=== PATIENT | female | born 1985 | race Caucasian/White ===

== ENCOUNTER → 2024-08-26 09:34 | Outpatient (BNVA) | payer OTHER, SELFPAY | PROVIDERS: Visit Provider Clinical Nurse Specialist Adult Health | DX: R07.9 Chest pain, unspecified (principal); F41.1 Generalized anxiety disorder; K02.9 Dental caries, unspecified; R00.2 Palpitations; D50.9 Iron deficiency anemia, unspecified | CPT/HCPCS: 82607; 82728; 83550 ==

== ENCOUNTER 2024-09-10 14:03 | Outpatient (CLI) | payer OTHER, SELFPAY ==
--- NOTE | 2024-09-10 14:00 | MM_ITS ---
WS: [id number] VIEWS: MLO and CC views both breasts. 3D digital tomosynthesis is also included in this exam. Baseline study. No priors. Findings: The breasts are extremely dense, which lowers the sensitivity of mammography. No suspicious mass, tumor calcification or architectural distortion. MM/MM scr BI tomosynthesis [id number] Impression: BI-RADS: 2 - Benign FOLLOW-UP: 1 Year Follow-up This mammogram was also analyzed by the Computer Aided Detection System R2 Imag e Capsule Inspector.
== END 2024-09-10 14:04 | disposition home or self-care (01) ==
LOC: MOBLMAM 14:05
PROVIDERS: PCP Clinical Nurse Specialist Adult Health; Visit Provider Clinical Nurse Specialist Adult Health
DX: Z12.31 Encounter for screening mammogram for malignant neoplasm of breast (principal); R92.333 Mammographic heterogeneous density, bilateral breasts
CPT/HCPCS: 77063; 77067

== ENCOUNTER 2024-12-31 23:42 | Inpatient (IN) | payer MEDICAID, SELFPAY ==
[2024-12-31 23:44] VITALS: BP 123/83; RESP 18; TEMP 36.8; O2SAT 75
--- NOTE | 2024-12-31 23:47 | CTR_ITS ---
PROCEDURE INFORMATION: Exam: CT Head Without Contrast Exam date and time: 01/01/2025 1:23 AM Age: 39 years old Clinical indication: Alteration of consciousness and other: Seizure; Syncope and collapse; Additional info: New onset seizure TECHNIQUE: Imaging protocol: Computed tomography of the head without contrast. Radiation optimization: All CT scans at this facility use at least one of these dose optimization techniques: automated exposure control; mA and/or kV adjustment per patient size (includes targeted exams where dose is matched to clinical indication); or iterative reconstruction. COMPARISON: No relevant prior studies available. RADIATION DOSE METRICS: Total DLP (mGy-cm): 1229.08 FINDINGS: Brain: Normal. No infarct or hemorrhage. Unremarkable white matter. No mass effect. Cerebral ventricles: No ventriculomegaly. Paranasal sinuses: Paranasal sinuses are clear. No air-fluid level. Mastoid air cells: Visualized mastoid air cells are clear. Bones: Unremarkable. No acute fracture. Soft tissues: Unremarkable. CT/CT head wo con* [id number] IMPRESSION: No acute intracranial abnormality.
--- NOTE | 2024-12-31 23:48 | XRR_ITS ---
PROCEDURE INFORMATION: Exam: CT Head With Contrast Exam date and time: 01/01/2025 1:35 AM Age: 39 years old Clinical indication: Other: Seizure; Other: Intubation; Additional info: Probable tumor TECHNIQUE: Imaging protocol: Computed tomography of the head with intravenous contrast. Radiation optimization: All CT scans at this facility use at least one of these dose optimization techniques: automated exposure control; mA and/or kV adjustment per patient size (includes targeted exams where dose is matched to clinical indication); or iterative reconstruction. Contrast material: OMNI 350; Contrast volume: 75 ml; Contrast route: INTRAVENOUS (IV); COMPARISON: CT head wo con* [id number] 01/01/2025 1:23 AM RADIATION DOSE METRICS: Total DLP (mGy-cm): 2475.98 FINDINGS: Brain: No cerebral/cerebellar infarct. No brain parenchymal or extra-axial hemorrhage. No abnormal parenchymal or meningeal enhancement. Cerebral ventricles: Unremarkable. No ventriculomegaly. Bones/joints: Unremarkable. No acute fracture. Paranasal sinuses: Visualized sinuses are unremarkable. No fluid levels. Mastoid air cells: Visualized mastoid air cells are well aerated. Soft tissues: Unremarkable. Other findings: No mass lesion. PROCEDURE INFORMATION: Exam: XR Chest Exam date and time: 01/01/2025 1:35 AM Age: 39 years old Clinical indication: Other: Seizure; Other: Intubation; Additional info: Probable tumor TECHNIQUE: Imaging protocol: Radiologic exam of the chest. Views: 1 view. COMPARISON: No relevant prior studies available. FINDINGS: Tubes, catheters and devices: Endotracheal tube is in good position. Nasogastric/orogastric tube is in good position. Lungs: Unremarkable. No consolidation. Pleural spaces: Unremarkable. No pleural effusion. No pneumothorax. Heart/Mediastinum: Unremarkable. No cardiomegaly. Bones/joints: Unremarkable. XR/XR chest 1V portable [id number] IMPRESSION: 1. No acute infarct or hemorrhage. 2. No mass lesion. IMPRESSION: 1. Nasogastric/orogastric tube is in good position. 2. Endotracheal tube is in good position. 3. No acute disease.
[2024-12-31 23:51] VITALS: BP 135/78; PULSE 125; RESP 18; O2SAT 99
--- NOTE | 2024-12-31 23:52 | ED_ITS ---
HPI - Seizure 2 General: Chief Complaint: Seizure Stated Complaint: SEIZURES Time Seen by Provider: 12/31/24 23:45 Related Data Home Medications ?Medication ?Instructions ?Recorded ?Confirmed Dessicated Beef organs PO 08/26/24 11/01/24 Previous Rx's ?Medication ?Instructions ?Recorded ferrous sulfate 324 mg (65 mg 324 mg PO DAILY #30 tabs 08/28/24 iron) tablet,delayed release amoxicillin 875 mg tablet 875 mg PO Q12H #14 tabs 10/04 10/26 chlorhexidine gluconate 0.12 % 15 ml buccal DAILY #120 mL 11/01/24 mouthwash (Peridex) prednisone 20 mg tablet See Rx Instructions .Route 0 11/01/24 .COMPLEX #14 tabs venlafaxine 75 mg capsule,extended 75 mg PO QAM #30 ca ps 12/02/24 release 24 hr Allergies Allergy/AdvReac Type Severity Reaction Status Date / Time gabapentin Allergy Intermediate ADR-Dizzine Verified 12/31/24 23:51 ss rizatriptan (From Maxalt) Allergy Mild Unknown Verified 11/01/24 08:02 PFSH ED 2 PFSH: Medical History Iron deficiency anemia Palpitation Lumbar disc disease Herpes simplex type 2 Mild intermittent asthma in childhood IBS (irritable bowel syndrome) diagnosed by GI. hx of colonoscopy. Raynauds disease Calcium kidney stones Adenomyosis Endometriosis Ovarian cyst ADHD Major depression Generalized anxiety disorder Surgical History Hx of wisdom tooth extraction Hx of cholecystectomy History of salivary gland disease had a stone and then had gland removal History of removal of ovarian cyst X3 Family History Other Anesthesia complication Autoimmune disease CAD (coronary artery disease) Cancer Diabetes mellitus type 1 Heart disease Hypertension Prostate cancer Skin cancer Stroke Ulcerative colitis Social History Smoking and tobacco/nicotine status: current every day tobacco/nicotine user (vapes) Alcohol intake: current Alcohol intake frequency: holidays/special occasions only Substance/Drug Use: current Other substance/drug use details: pen-helps with anxiety, once/week Physical Exam 2 Narrative: EXAM NARRATIVE: General: responds minimally to painful stimuli. Skin: Warm, dry Head: Normocephalic, atraumatic. Neck: Supple, trachea midline. Eye: Extraocular movements are intact. Ears, nose, mouth and throat: Dry oral mucosa. Cardiovascular: Regular rate and rhythm, Normal peripheral perfusion. Respiratory: Lungs are clear to auscultation, respirations are non-labored, breath sounds are equal, Symmetrical chest wall expansion. Gastrointestinal: Soft, Non distended, Normal bowel sounds. Musculoskeletal: no deformity. Neurological: Not Alert and oriented, No obvious focal neurological deficit observed. Psychiatric: unable to assess. Course 2 Vital Signs: Vital signs: Vital Signs Temperature 98.3 F 12/31/24 23:44 Pulse Rate 125 H 12/31/24 23:51 Respiratory Rate 18 12/31/24 23:51 Blood Pressure 135/78 12/31/24 23:51 Pulse Oximetry 99 12/31/24 23:51 Oxygen Delivery Me thod Room Air 12/31/24 23:44 MDM - Seizure MDM Narrative Medical decision making narrative: Medical decision making: Differential diagnosis for this patient with a complaint of seizure like activity would include but not be limited to, and based on the above HPI, review of systems and physical exam: seizure, DT's, alcohol withdrawal, brain malignancy, pseudo-seizure, syncope. Orders placed to evaluate differential diagnosis based on the above differential, HPI and physical exam AB.8 /269. Respiratory and likely metabolic acidosis from lactic acid. Under ventilating. Lab Review: Laboratory results were reviewed and interpreted by myself the emergency room physician Consultation: I spoke with Dr. Durán who is on-call for neurology. He recommends 1 g of Keppra now then 500 twice daily IV after. He agrees with plan. He also agrees that if she does not wake up fairly soon that she will need to be intubated but he also agrees that the Versed and postictal state may wear off fairly quickly and she is maintaining her oxygen. I reviewed the patient's medical record. Reexamination: Patient continued to be unresponsive and had limited respirations. For this reason she was intubated so she could make it CT and because she was not maintaining her airway. Endotracheal intubation Time: 12:45 AM Confirmed: Patient, procedure, and site correct. Consent: , Emergent. Indication: Respiratory failure. Procedural sedation: Succinylcholine and etomidate . Monitoring: Cardiac, blood pressure, continuous pulse oximetry. Preparation: Pre oxygenated, Inline stabilization of cervical spine maintained, Ensured proper cuff inflation. Technique: Oral intubation: A 8 ET tube was inserted, glydescope, visualized cords and ett passing through cords. . Confirmation of tube placement: Bilateral chest rise, Positive color change indicated on end title CO2. Post procedure exam: Equal breath sounds. Complications: None. Performed by: Self. Total time: 10 minutes. Assessment and plan: -I discussed the patient with the hospitalist on-call who is admitting the patient. - Discussed findings and plan with patient. Answered any questions. - All laboratory values were reviewed and interpreted personally by myself, the ER physician - All imaging was reviewed and interpreted personally by myself, the ER physician. - Evaluation and treatment of this problem were appropriate in the emergency setting Lab Data 01/01/25 00:42 01/01/25 00:42 Labs: Laboratory Results WBC 15.63 10^3/uL (3.29-11.43) H 01/01/25 00:42 RBC 4.90 10^6/uL (3.85-5.65) 01/01/25 00:42 Hgb 13.60 g/dL (11.27-16.99) 01/01/25 00:42 Hct 41.9 % (36-47) 01/01/25 00:42 MCV 85.5 fl (85-98) 01/01/25 00:42 MCH 27.8 pg (27-33) 01/01/25 00:42 MCHC 32.5 g/dL (30-55) 01/01/25 00:42 RDW 12.2 % (12.1-15.1) 01/01/25 00:42 Plt Count 368 10^3/cmm (157-399) 01/01/25 00:42 MPV 10.0 fL (7.4-10.4) 01/01/25 00:42 Neut % (Auto) 85.0 % 01/01/25 00:42 Lymph % (Auto) 9.1 % 01/01/25 00:42 [place] % (Auto) 4.4 % 01/01/25 00:42 Eos % (Auto) 0.1 % 01/01/25 00:42 Baso % (Auto) 0.4 % 01/01/25 00:42 Neut # (Auto) 13.27 10^3/uL (1.8-7.7) H 01/01/25 00:42 Lymph # (Auto) 1.4 10^3/uL (0.8-4.8) 01/01/25 00:42 [place] # (Auto) 0.7 10^3/uL (0.2-0.9) 01/01/25 00:42 Eos # (Auto) 0.0 10^3/uL (0.0-0.8) 01/01/25 00:42 Baso # (Auto) 0.1 10^3/uL (0.0-0.1) 01/01/25 00:42 Nucleated RBC % (auto) 0 % 01/01/25 00:42 Nucleated RBCs # 0.0 /100WBC 01/01/25 00:42 Specimen Type Arterial 12/31/24 23:53 Sample Site Radial, right 12/31/24 23:53 ABG pO2 269.0 mmHg (80.0-100.0) H 12/31/24 23:53 ABG HCO3 16.4 mmol/L (22-26) L 12/31/24 23:53 ABG O2 Saturation 98.8 12/31/24 23:53 ABG Base Excess -18.3 mmol/L (-2.0-2.0) L 12/31/24 23:53 Will Test Pos 12/31/24 23:53 Hematocrit 43.9 % (37-47) 12/31/24 23:53 Hgb O2 Saturation 97.9 % (95-100) 12/31/24 23:53 Carboxyhemoglobin 0.4 %THgb (0.4-20.1) 12/31/24 23:53 Methemoglobin 0.6 % (0.4-1.5) 12/31/24 23:53 Total Hemoglobin 14.3 g/dL (12-16) 12/31/24 23:53 Sodium 146.0 mmol/L (131-143) H 12/31/24 23:53 Potassium 3.3 mmol/L (3.5-5.0) L 12/31/24 23:53 Glucose 177.0 mg/dL (70-115) H 12/31/24 23:53 Ionized Calcium 1.4 mmol/L (1.1-1.4) 12/31/24 23:53 O2 Delivery Device Nc 12/31/24 23:53 O2 Liters/Min 4.0 % 12/31/24 23:53 Sports Betting Manager ID [email or web address] 12/31/24 23:53 Urine Color Yellow (Yellow) 12/31/24 23:57 Urine Appearance Clear (CLEAR) 12/31/24 23:57 Urine pH 5 (5-7) 12/31/24 23:57 Ur Specific [place] 1.020 (1.005-1.030) 12/31/24 23:57 Urine Protein Trace (Negative) H 12/31/24 23:57 Urine Glucose (UA) Norm (Normal) 12/31/24 23:57 Urine Ketones 1+ (Negative) H 12/31/24 23:57 Urine Blood 2+ (Negative) A 12/31/24 23:57 Urine Nitrate Negative (Negative) 12/31/24 23:57 Urine Bilirubin Neg (Negative) 12/31/24 23:57 Urine Urobilinogen Neg mg/dL (Negative) 12/31/24 23:57 Ur Leukocyte Esterase Negative (Negative) 12/31/24 23:57 Urine RBC 0-2 /hpf (0-2) 12/31/24 23:57 Urine WBC 0-5 /hpf (0-5) 12/31/24 23:57 Ur Squamous Epith Cells 0-5 /hpf (0-5) 12/31/24 23:57 Amorphous Sediment Not Reportable 12/31/24 23:57 Urine Bacteria None seen /hpf (NONE) 12/31/24 23:57 Hyaline Casts 7.42 /lpf 12/31/24 23:57 Urine Opiates Screen Negative ng/mL (Negative) 12/31/24 23:57 Ur Barbiturates Screen Negative ng/mL (Negative) 12/31/24 23:57 Ur Phencyclidine Scrn Negative ng/mL (Negative) 12/31/24 23:57 Ur Amphetamines Screen Negative ng/mL (Negative) 12/31/24 23:57 U Benzodiazepines Scrn Negative ng/mL (Negative) 12/31/24 23:57 Urine Cocaine Screen Negative ng/mL (Negative) 12/31/24 23:57 U Marijuana (THC) Screen Positive ng/mL (Negative) H 12/31/24 23:57 All radiology interpretation(s) finalized by discharge Discharge Plan Discharge Condition: Stable Prescriptions: No Action Dessicated Beef organs PO chlorhexidine gluconate [Peridex] 0.12 % mouthwash 15 ml buccal DAILY Qty: 120 0RF amoxicillin 875 mg tablet 875 mg PO Q12H Qty: 14 0RF prednisone 20 mg tablet See Rx Instructions .Route .COMPLEX Qty: 14 0RF Rx Instructions: 2 tabs PO daily for 4 days, then 1 tab PO daily X 4 days, then 0.5 tab daily for 4 days, then stop; ferrous sulfate 324 mg (65 mg iron) tablet,delayed release (DR/EC) 324 mg PO DAILY Qty: 30 0RF venlafaxine 75 mg capsule,extended release 24hr 75 mg PO QAM Qty: 30 3RF Referrals: Roberto Donaldson PRESCHOOL ASSOCIATE TEACHER [Primary Care Provider] - Print Language: Czech Coding Level of Care Code ED Supervisor Nutritional Yeast for [place]
[2025-01-01] VITALS (122 sets, daily range): BP systolic 80–131; BP diastolic 53–94; PULSE 50–157; RESP 12–20; TEMP 37–37.3; O2SAT 92–100; BMI 27.1
[2025-01-01 00:06] LABS: Arterial Blood Gas Hematocrit 43.9 % (37-47); Base Excess ABG -18.3 mmol/L (-2.0-2.0); Blood Gas Allen Test Pos; Blood Gas Sample Site Radial, right; Blood Gas Sample Type Arterial; Carboxyhemoglobin 0.4 %THgb (0.4-20.1); HCO3 ABG 16.4 mmol/L (22-26); HGB O2 Sat 97.9 % (95-100); Ionized Calcium Level - ABG 1.4 mmol/L (1.1-1.4); Methemoglobin 0.6 % (0.4-1.5); Oxygen Device NC; Oxygen Saturation ABG 98.8; Potassium Level - ABG 3.3 mmol/L (3.5-5.0); Total Hemoglobin 14.3 g/dL (12-16)
[2025-01-01 00:10] LABS: Amphetamines Screen Urine Negative (Negative); Barbiturates Screen Urine Negative (Negative); Benzodiazepines Screen Urine Negative (Negative); Cocaine Screen Urine Negative (Negative); Opiate Screen Urine Negative (Negative); PCP Screen Urine Negative (Negative); THC Screen Urine Positive (Negative)
[2025-01-01 00:14] LABS: Bacteria Urine None Seen /hpf; Hyaline Casts Urine 7.42 /lpf; RBC Urine 0-2 /hpf (0-2); Squamous Epithelial Cell Urine 0-5 /hpf (0-5); WBC Urine 0-5 /hpf (0-5)
[2025-01-01 00:34] LABS: Bilirubin Urine Neg (Negative); Blood Urine 2+ (Negative); Glucose Urine UA Norm (Normal); Ketones Urine 1+ (Negative); Leukocyte Esterase Urine Negative (Negative); Nitrate Urine Negative (Negative); Protein Urine Trace (Negative); UA Slide Review UA Slide Review Perf; Urine Appearance Clear (CLEAR); Urine Color Yellow (Yellow); Urobilinogen Urine Neg (Negative); pH Urine 5 (5-7)
[2025-01-01] MEDS: levETIRAcetam 1,000 MG/100 ML PREMIX 400 MG IV (00:35)
[2025-01-01 00:55] LABS: Basophils # 0.1 10^3/uL (0.0-0.1); Basophils % 0.4 %; Eosinophils % 0.1 %; Hematocrit 41.9 % (36-47); Lymphocytes # 1.4 10^3/uL (0.8-4.8); Lymphocytes % 9.1 %; Mean Corpuscular HGB Conc 32.5 g/dL (30-55); Mean Corpuscular Hemoglobin 27.8 pg (27-33); Mean Corpuscular Volume 85.5 fl (85-98); Monocytes # 0.7 10^3/uL (0.2-0.9); Monocytes % 4.4 %; Neutrophils # 13.27 10^3/uL (1.8-7.7); Nucleated Red Blood Cells % 0 %; Platelet Count 368 10^3/cmm (157-399); Red Cell Distribution Width 12.2 % (12.1-15.1); White Blood Count 15.63 10^3/uL (3.29-11.43)
[2025-01-01] MEDS: etomidate 2 mg/mL INJ SDV 10 mL 20 MG IVP (00:55)
[2025-01-01] MEDS: succinylcholine 20 mg/mL SDV 10mL 100 MG IV (00:55)
[2025-01-01 01:02] LABS: HCG, Serum Qual Negative (Negative)
--- NOTE | 2025-01-01 01:06 | ED_ITS ---
HPI - Seizure 2 General: Chief Complaint: Seizure Stated Complaint: SEIZURES Time Seen by Provider: 12/31/24 23:45 History of Present Illness: HPI Narrative: 39-year-old female with a history of anx iety who presents to the emergency room by ambulance after having had a seizure. She has no known history of seizures in the past. EMS reports that when they initially got to her home she was postictal. I later talked with her who tells me that she had not been feeling very well and had been sort of nauseous today but otherwise have been fine. He said she ate a hot pocket and then he had walked out of the room and he heard a crash and when he came back and she was seizing. Unclear how long she sees. He said she was postictal afterwards. EMS reports that she woke up on the way to the hospital and was talking normally and was no longer postictal. She then had another seizure prior to arrival that ended up requiring Versed. On my exam initially she is very unresponsive. O2 sats are okay but ABG shows she is retaining Seizure History: No Place: Home Related Data Home Medications ?Medication ?Instructions ?Recorded ?Confirmed Dessicated Beef organs PO 08/26/24 11/01/24 Previous Rx's ?Medication ?Instructions ?Recorded ferrous sulfate 324 mg (65 mg 324 mg PO DAILY #30 tabs 08/28/24 iron) tablet,delayed release amoxicillin 875 mg tablet 875 mg PO Q12H #14 tabs 10/04 10/26 chlorhexidine gluconate 0.12 % 15 ml buccal DAILY #120 mL 11/01/24 mouthwash (Peridex) prednisone 20 mg tablet See Rx Instructions .Route 0 11/01/24 .COMPLEX #14 tabs venlafaxine 75 mg capsule,extended 75 mg PO QAM #30 ca ps 12/02/24 release 24 hr Allergies Allergy/AdvReac Type Severity Reaction Status Date / Time gabapentin Allergy Intermediate ADR-Dizzine Verified 12/31/24 23:51 ss rizatriptan (From Maxalt) Allergy Mild Unknown Verified 11/01/24 08:02 Review of Systems 2 General: Reports: ROS unobtainable due to medical condition and ROS unobtainable due to mental status [facility] ED 2 PFSH: Medical History Iron deficiency anemia Palpitation Lumbar disc disease Herpes simplex type 2 Mild intermittent asthma in childhood IBS (irritable bowel syndrome) diagnosed by GI. hx of colonoscopy. Raynauds disease Calcium kidney stones Adenomyosis Endometriosis Ovarian cyst ADHD Major depression Generalized anxiety disorder Surgical History Hx of wisdom tooth extraction Hx of cholecystectomy History of salivary gland disease had a stone and then had gland removal History of removal of ovarian cyst X3 Family History Other Anesthesia complication Autoimmune disease CAD (coronary artery disease) Cancer Diabetes mellitus type 1 Heart disease Hypertension Prostate cancer Skin cancer Stroke Ulcerative colitis Social History Smoking and tobacco/nicotine status: current every day tobacco/nicotine user (vapes) Alcohol intake: current Alcohol intake frequency: holidays/special occasions only Substance/Drug Use: current Other substance/drug use details: pen-helps with anxiety, once/week Physical Exam 2 Narrative: EXAM NARRATIVE: General: responds minimally to painful stimuli. Skin: Warm, dry Head: Normocephalic, atraumatic. Neck: Supple, trachea midline. Eye: Extraocular movements are intact. Ears, nose, mouth and throat: Dry oral mucosa. Cardiovascular: Regular rate and rhythm, Normal peripheral perfusion. Respiratory: Lungs are clear to auscultation, respirations are non-labored, breath sounds are equal, Symmetrical chest wall expansion. Gastrointestinal: Soft, Non distended, Normal bowel sounds. Musculoskeletal: no deformity. Neurological: Not Alert and oriented, No obvious focal neurological deficit observed. Psychiatric: unable to assess. Course 2 Vital Signs: Vital signs: Vital Signs Temperature 98.3 F 12/31/24 23:44 Pulse Rate 125 H 12/31/24 23:51 Respiratory Rate 16 01/01/25 02:08 Blood Pressure 135/78 12/31/24 23:51 Pulse Oximetry 99 12/31/24 23:51 Oxygen Delivery Me thod Room Air 12/31/24 23:44 Fraction of Inspir ed Oxygen 50 01/01/25 02:08 MDM - Seizure MDM Narrative Medical decision making narrative: Differential diagnosis for this patient with a complaint of seizure like activity would include but not be limited to, and based on the above HPI, review of systems and physical exam: seizure, DT's, alcohol withdrawal, brain malignancy, pseudo-seizure, syncope. Orders placed to evaluate differential diagnosis based on the above differential, HPI and physical exam AB.8 /. Respiratory and likely metabolic acidosis from lactic acid. Under ventilating. Lab Review: Laboratory results were reviewed and interpreted by myself the emergency room physician Mild leukocytosis. No anemia. Urinalysis is negative for infection. Drug screen is positive for marijuana only. Consultation: I spoke with Dr. Durán who is on-call for neurology. He recommends 1 g of Keppra now then 500 twice daily IV after. He agrees with plan. He also agrees that if she does not wake up fairly soon that she will need to be intubated but he also agrees that the Versed and postictal state may wear off fairly quickly and she is maintaining her oxygen. I reviewed the patient's medical record. Reexamination: Patient continued to be unresponsive and had limited respirations. For this reason she was intubated so she could make it CT and because she was not maintaining her airway. I also discussed at length the patient's history with . She has no alcohol abuse history. She does not take benzodiazepines. She does take hydroxyzine for anxiety. Endotracheal intubation Time: 12:45 AM Confirmed: Patient, procedure, and site correct. Consent: , Emergent. Indication: Respiratory failure. Procedural sedation: Succinylcholine and etomidate . Monitoring: Cardiac, blood pressure, continuous pulse oximetry. Preparation: Pre oxygenated, Inline stabilization of cervical spine maintained, Ensured proper cuff inflation. Technique: Oral intubation: A 8 ET tube was inserted, glydescope, visualized cords and ett passing through cords. . Confirmation of tube placement: Bilateral chest rise, Positive color change indicated on end title CO2. Post procedure exam: Equal breath sounds. Complications: None. Performed by: Self. Total time: 10 minutes. Chest x-ray: ET tube in place just to the clavicles. Above the allison. No obvious infiltrates in the lungs. No pneumothorax. This was reviewed and interpreted by myself the emergency room physician. I also reviewed the radiology report. CT head with and without contrast: No acute intracranial process. no intracranial hemorrhage, no evidence of infarct. no evidence of acute fracture.This was reviewed and interpreted by myself the ER physician. Assessment and plan: Seizure Respiratory failure ?IV Keppra was given. Normal saline bolus given. Patient was intubated emergently as she continued to be unresponsive and was hypercapnic with CO2 retention. ?Versed for sedation for now. -I discussed the patient with the hospitalist on-call who is admitting the patient. - Discussed findings and plan with patient. Answered any questions. - All laboratory values were reviewed and interpreted personally by myself, the ER physician - All imaging was reviewed and interpreted personally by myself, the ER physician. - Evaluation and treatment of this problem were appropriate in the emergency setting Critical care -I spent a total of >35 minutes of critical care time managing the patient, independent of any other practitioner. -The time involved in the performance of separately reportable procedures was not counted towards critical care time. Lab Data 01/01/25 00:42 01/01/25 00:42 Labs: Radiology Impressions Chest X-Ray 12/31/24 23:48 IMPRESSION: 1. No acute infarct or hemorrhage. 2. No mass lesion. IMPRESSION: 1. Nasogastric/orogastric tube is in good position. 2. Endotracheal tube is in good position. 3. No acute disease. Head CT 01/01/25 01:33 IMPRESSION: 1. No acute infarct or hemorrhage. 2. No mass lesion. IMPRESSION: 1. Nasogastric/orogastric tube is in good position. 2. Endotracheal tube is in good position. 3. No acute disease. Laboratory Results WBC 15.63 10^3/uL (3.29-11.43) H 01/01/25 00:42 RBC 4.90 10^6/uL (3.85-5.65) 01/01/25 00:42 Hgb 13.60 g/dL (11.27-16.99) 01/01/25 00:42 Hct 41.9 % (36-47) 01/01/25 00:42 MCV 85.5 fl (85-98) 01/01/25 00:42 MCH 27.8 pg (27-33) 01/01/25 00:42 MCHC 32.5 g/dL (30-55) 01/01/25 00:42 RDW 12.2 % (12.1-15.1) 01/01/25 00:42 Plt Count 368 10^3/cmm (157-399) 01/01/25 00:42 MPV 10.0 fL (7.4-10.4) 01/01/25 00:42 Neut % (Auto) 85.0 % 01/01/25 00:42 Lymph % (Auto) 9.1 % 01/01/25 00:42 [place] % (Auto) 4.4 % 01/01/25 00:42 Eos % (Auto) 0.1 % 01/01/25 00:42 Baso % (Auto) 0.4 % 01/01/25 00:42 Neut # (Auto) 13.27 10^3/uL (1.8-7.7) H 01/01/25 00:42 Lymph # (Auto) 1.4 10^3/uL (0.8-4.8) 01/01/25 00:42 [place] # (Auto) 0.7 10^3/uL (0.2-0.9) 01/01/25 00:42 Eos # (Auto) 0.0 10^3/uL (0.0-0.8) 01/01/25 00:42 Baso # (Auto) 0.1 10^3/uL (0.0-0.1) 01/01/25 00:42 Nucleated RBC % (auto) 0 % 01/01/25 00:42 Nucleated RBCs # 0.0 /100WBC 01/01/25 00:42 Specimen Type Arterial 12/31/24 23:53 Sample Site Radial, right 12/31/24 23:53 ABG pO2 269.0 mmHg (80.0-100.0) H 12/31/24 23:53 ABG HCO3 16.4 mmol/L (22-26) L 12/31/24 23:53 ABG O2 Saturation 98.8 12/31/24 23:53 ABG Base Excess -18.3 mmol/L (-2.0-2.0) L 12/31/24 23:53 Will Test Pos 12/31/24 23:53 Hematocrit 43.9 % (37-47) 12/31/24 23:53 Hgb O2 Saturation 97.9 % (95-100) 12/31/24 23:53 Carboxyhemoglobin 0.4 %THgb (0.4-20.1) 12/31/24 23:53 Methemoglobin 0.6 % (0.4-1.5) 12/31/24 23:53 Total Hemoglobin 14.3 g/dL (12-16) 12/31/24 23:53 Sodium 146.0 mmol/L (131-143) H 12/31/24 23:53 Potassium 3.3 mmol/L (3.5-5.0) L 12/31/24 23:53 Glucose 177.0 mg/dL (70-115) H 12/31/24 23:53 Ionized Calcium 1.4 mmol/L (1.1-1.4) 12/31/24 23:53 O2 Delivery Device Nc 12/31/24 23:53 O2 Liters/Min 4.0 % 12/31/24 23:53 Dental Assistant ID [email or web address] 12/31/24 23:53 Sodium 140 mmol/L (136-145) 01/01/25 00:42 Potassium 3.7 mmol/L (3.5-5.1) 01/01/25 00:42 Chloride 103 mmol/L (98-107) 01/01/25 00:42 Carbon Dioxide 22 mmol/L (22-29) 01/01/25 00:42 Anion Gap 18.7 (5-19) 01/01/25 00:42 BUN 11 mg/dL (6-20) 01/01/25 00:42 Creatinine 0.8 mg/dL (0.5-0.9) 01/01/25 00:42 GFR Calculation 79.4 mL/min (90-130) L 01/01/25 00:42 Glucose 170 mg/dL (65-115) H 01/01/25 00:42 Calculated Osmolality 293 mOsm/kg (285-295) 01/01/25 00:42 Lactic Acid 7.9 mmol/L (0.5-2.2) H* 01/01/25 00:42 Calcium 8.8 mg/dL (8.5-10.5) 01/01/25 00:42 Total Bilirubin 0.2 mg/dL (0.15-1.2) 01/01/25 00:42 AST 21 U/L (0-32) 01/01/25 00:42 ALT 23 U/L (0-33) 01/01/25 00:42 Alkaline Phosphatase 88 U/L (35-105) 01/01/25 00:42 Creatine Kinase 85 U/L (26-192) 01/01/25 00:42 Total Protein 7.3 g/dL (6.6-8.7) 01/01/25 00:42 Albumin 4.3 g/dL (3.5-5.2) 01/01/25 00:42 Globulin 3.0 g/dL (1.3-4.6) 01/01/25 00:42 HCG, Qual Negative (Negative) 01/01/25 00:42 Urine Color Yellow (Yellow) 12/31/24 23:57 Urine Appearance Clear (CLEAR) 12/31/24 23:57 Urine pH 5 (5-7) 12/31/24 23:57 Ur Specific Fowler 1.020 (1.005-1.030) 12/31/24 23:57 Urine Protein Trace (Negative) H 12/31/24 23:57 Urine Glucose (UA) Norm (Normal) 12/31/24 23:57 Urine Ketones 1+ (Negative) H 12/31/24 23:57 Urine Blood 2+ (Negative) A 12/31/24 23:57 Urine Nitrate Negative (Negative) 12/31/24 23:57 Urine Bilirubin Neg (Negative) 12/31/24 23:57 Urine Urobilinogen Neg mg/dL (Negative) 12/31/24 23:57 Ur Leukocyte Esterase Negative (Negative) 12/31/24 23:57 Urine RBC 0-2 /hpf (0-2) 12/31/24 23:57 Urine WBC 0-5 /hpf (0-5) 12/31/24 23:57 Ur Squamous Epith Cells 0-5 /hpf (0-5) 12/31/24 23:57 Amorphous Sediment Not Reportable 12/31/24 23:57 Urine Bacteria None seen /hpf (NONE) 12/31/24 23:57 Hyaline Casts 7.42 /lpf 12/31/24 23:57 Salicylates < 0.3 mg/dL (3-10) L 01/01/25 00:42 Urine Opiates Screen Negative ng/mL (Negative) 12/31/24 23:57 Acetaminophen < 5.0 ug/mL (10-30) L 01/01/25 00:42 Ur Barbiturates Screen Negative ng/mL (Negative) 12/31/24 23:57 Ur Phencyclidine Scrn Negative ng/mL (Negative) 12/31/24 23:57 Ur Amphetamines Screen Negative ng/mL (Negative) 12/31/24 23:57 U Benzodiazepines Scrn Negative ng/mL (Negative) 12/31/24 23:57 Urine Cocaine Screen Negative ng/mL (Negative) 12/31/24 23:57 U Marijuana (THC) Screen Positive ng/mL (Negative) H 12/31/24 23:57 Ethyl Alcohol < 10 mg/dL (0-10) 01/01/25 00:42 All radiology interpretation(s) finalized by discharge Discharge Plan Discharge Patient Disposition: Admitted As Inpatient Clinical Impression: New onset seizure, Respiratory failure Condition: Stable Coding Level of Care 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
[2025-01-01 01:08] LABS: Acetaminophen < 5.0 ug/mL (10-30); Alanine Aminotransferase 23 U/L (0-33); Albumin Level 4.3 g/dL (3.5-5.2); Alcohol Level < 10 mg/dL (0-10); Alkaline Phosphatase 88 U/L (35-105); Anion Gap 18.7 (5-19); Aspartate Amino Transferase 21 U/L (0-32); Blood Urea Nitrogen 11 mg/dL (6-20); Calcium 8.8 mg/dL (8.5-10.5); Carbon Dioxide 22 mmol/L (22-29); Chloride 103 mmol/L (98-107); Glomerular Filtration Rate 79.4 mL/min (90-130); Glucose 170 mg/dL (65-115); Osmolality Calculated 293 mOsm/kg (285-295); Potassium 3.7 mmol/L (3.5-5.1); Salicylate < 0.3 mg/dL (3-10); Sodium 140 mmol/L (136-145); Total Bilirubin 0.2 mg/dL (0.15-1.2); Total Protein 7.3 g/dL (6.6-8.7)
[2025-01-01 01:13] LABS: Lactic Sepsis W/Reflex 7.9 mmol/L (0.5-2.2)
[2025-01-01 01:23] LABS: Creatine Phosphokinase 85 U/L (26-192)
[2025-01-01] MEDS: ondansetron 2 mg/ML SDV 2 mL 4 MG (01:23)
[2025-01-01] MEDS: rocuronium 10 mg/mL INJ 5mL 100 MG IVP (01:23)
[2025-01-01] MEDS: sodium chloride 0.9% 1,000 ML 999 ML IV ×2 (01:30→23:40)
--- NOTE | 2025-01-01 01:33 | CTR_ITS ---
PROCEDURE INFORMATION: Exam: CT Head With Contrast Exam date and time: 01/01/2025 1:35 AM Age: 39 years old Clinical indication: Other: Seizure; Other: Intubation; Additional info: Probable tumor TECHNIQUE: Imaging protocol: Computed tomography of the head with intravenous contrast. Radiation optimization: All CT scans at this facility use at least one of these dose optimization techniques: automated exposure control; mA and/or kV adjustment per patient size (includes targeted exams where dose is matched to clinical indication); or iterative reconstruction. Contrast material: OMNI 350; Contrast volume: 75 ml; Contrast route: INTRAVENOUS (IV); COMPARISON: CT head wo con* [id number] 01/01/2025 1:23 AM RADIATION DOSE METRICS: Total DLP (mGy-cm): 2475.98 FINDINGS: Brain: No cerebral/cerebellar infarct. No brain parenchymal or extra-axial hemorrhage. No abnormal parenchymal or meningeal enhancement. Cerebral ventricles: Unremarkable. No ventriculomegaly. Bones/joints: Unremarkable. No acute fracture. Paranasal sinuses: Visualized sinuses are unremarkable. No fluid levels. Mastoid air cells: Visualized mastoid air cells are well aerated. Soft tissues: Unremarkable. Other findings: No mass lesion. PROCEDURE INFORMATION: Exam: XR Chest Exam date and time: 01/01/2025 1:35 AM Age: 39 years old Clinical indication: Other: Seizure; Other: Intubation; Additional info: Probable tumor TECHNIQUE: Imaging protocol: Radiologic exam of the chest. Views: 1 view. COMPARISON: No relevant prior studies available. FINDINGS: Tubes, catheters and devices: Endotracheal tube is in good position. Nasogastric/orogastric tube is in good position. Lungs: Unremarkable. No consolidation. Pleural spaces: Unremarkable. No pleural effusion. No pneumothorax. Heart/Mediastinum: Unremarkable. No cardiomegaly. Bones/joints: Unremarkable. CT/CT head w con [id number] IMPRESSION: 1. No acute infarct or hemorrhage. 2. No mass lesion. IMPRESSION: 1. Nasogastric/orogastric tube is in good position. 2. Endotracheal tube is in good position. 3. No acute disease.
[2025-01-01] MEDS: iohexol 350 mg/mL 500 mL Btl (per mL) IV (01:53)
--- NOTE | 2025-01-01 01:55 | PC.NURSE ---
Pt was intubated with a 8.0 tube and 25 at the lip. Pt was intubated by Dr. Avalos with respiratory and 2 nurses at bedside. Time of intubation was 57
--- NOTE | 2025-01-01 02:06 | P.HP_ITS ---
Providers/Chief Complaint 2 Admitting Physician: Elise Link MD Primary Care Provider: Roberto Donaldson Chief Complaint: SEIZURES History of Present Illness Family members were not around at the time of this H&P was being done, so history is primarily obtained from from signout by the ED physician, chart review, and reports by nursing staff. Lizzeth Toscano is a 39 year old female w/ IBS, ADHD, Generalized Anxiety d/o, MDD, Endometriosis, Adenomyosis, Raynaud's disease and who was brought to the ED in the registered health nurse hours of 01/01/2025, via EMS for seizures. Per signout from the ED physician, the patient has not been feeling well all day, and had been nauseous. Upon the urging of her , she ate a hot pocket. The later heard a crash, and came running back to where she was, to see the patient seizing. Per ED physician, the seizure rhythm resolved after about 5 minutes, and the patient was postictal. EMS was called, and the patient had another witnessed seizure and the ambulance, during which she received 5 mg of Versed. When she arrived in the ED, she was unresponsive with an arterial blood gas of 6.88/87/269 on 4L NC, so she was intubated with etomidate and succinylcholine. A head CT w/ & w/o contrast was ordered, and on the way to CT, because the patient was so agitated, she was given another dose of rocuronium. Per ICU nursing staff reports, the patient also vomited in CT. Her CT head with and without contrast was negative for any acute findings. A CXR was also negative. Her labs were significant for a white count of 15.63, and a lactic acid of 7.9. Her UA showed trace proteins, and showed hyaline casts but was negative for a UTI. Her UDS was positive for THC. She was given 1 L NS bolus. Neurologist was consulted from the ED, who recommended 1 g of Keppra, which was administered in the ED. The patient was admitted to the ICU for further management. In the ICU, the patient was quite agitated, despite Propofol of 20, Fentanyl of 150mcg/hr, and Versed 6mg/hr. I asked the nurse to give a 4mg pushes of Versed two times, for total of 8 mg extra, in addition to the Versed 6mg/hr. per nursing staff, the patient's partner, told nursing staff to contact him when the patient was ready to be discharged, because he was going [facility], but per nursing staff, the patient and her partner had moved to the area in 05/2024. Furthermore, according to nursing staff, the patient's partner told the ED staff, that he was smoking outside when he heard the patient fall, and went running to witness her having a seizure. The patient's partner separately told the ICU respiratory therapist that he was lying in bed next to the patient when he started to have a seizure. Review of Systems 2 General: Reports: ROS unobtainable due to endotracheal tube and ROS unobtainable due to medical condition Medications/Allergies Home Medications ?Medication ?Instructions ?Recorded ?Confirmed ?Last Taken ?Type Dessicated Beef organs PO 08/26/24 11/01/24 Unknown History ferrous sulfate 324 mg (65 mg 324 mg PO DAILY #30 tabs 08/28/24 11/01/24 Unknown Rx iron) tablet,delayed release amoxicillin 875 mg tablet 875 mg PO Q12H #14 tabs 10/0411/01/24 Unknown Rx chlorhexidine gluconate 0.12 % 15 ml buccal DAILY #120 mL 11/01/24 11/01/24 Unknown Rx mouthwash (Peridex) prednisone 20 mg tablet See Rx Instructions .Route 0 11/01/24 11/01/24 Unknown Rx .COMPLEX #14 tabs venlafaxine 75 mg capsule,extended 75 mg PO QAM #30 ca ps 12/02/24 Unknown Rx release 24 hr Allergies Allergy/AdvReac Type Severity Reaction Status Date / Time gabapentin Allergy Intermediate ADR-Dizzine Verified 12/31/24 23:51 ss rizatriptan (From Maxalt) Allergy Mild Unknown Verified 11/01/24 08:02 PFSH Acute 2 PFSH: Medical History Iron deficiency anemia Palpitation Lumbar disc disease Herpes simplex type 2 Mild intermittent asthma in childhood IBS (irritable bowel syndrome) diagnosed by GI. hx of colonoscopy. Raynauds disease Calcium kidney stones Adenomyosis Endometriosis Ovarian cyst ADHD Major depression Generalized anxiety disorder Surgical History Hx of wisdom tooth extraction Hx of cholecystectomy History of salivary gland disease had a stone and then had gland removal History of removal of ovarian cyst X3 Family History Other Anesthesia complication Autoimmune disease CAD (coronary artery disease) Cancer Diabetes mellitus type 1 Heart disease Hypertension Prostate cancer Skin cancer Stroke Ulcerative colitis Social History Smoking and tobacco/nicotine status: current every day tobacco/nicotine user (vapes) Alcohol intake: current Alcohol intake frequency: holidays/special occasions only Substance/Drug Use: current Other substance/drug use details: pen-helps with anxiety, once/week Vitals/I&O/Wt Last Vital Signs Temp 98.3 F 12/31/24 23:44 Pulse 125 H 12/31/24 23:51 Resp 18 12/31/24 23:51 BP 135/78 12/31/24 23:51 Pulse Ox 99 12/31/24 23:51 O2 Del Method Room Air 12/31/24 23:44 12/31/24 12/31/24 01/01/25 14:59 22:59 06:59 Intake Total 100 / 100 Balance 100 / 100 Physical Exam 2 Narrative: Constitutional: GENERAL APPEARANCE: cooperative, comfortable and appears older than stated age; not combative, not disheveled, not ill appearing and not frail appearing HENT: HEAD & SCALP: normocephalic and atraumatic; NOSE: external nose not normal EXTERNAL EAR: no external ears normal MOUTH: patient intubated THROAT: patient intubated Eye: pinpoint pupil, responsive; normal conjunctiva b/l Neck: normal visual inspection, trachea midline, No anterior neck swelling, No tracheal deviation, no submandibular swelling, Thyroid normal , cervical ROM normal Lymph: no cervical, supraclavicular LAD Resp: no use of accessory muscles, CTAB, no w/r/r Cardio: RRR, no m/r/g, or clicks. 2+ radial and DP pulses. GI: normoactive bowel sounds, non-tender, non-distended, no guarding, no rigidity, no rebound tenderness, no hepatosplenomegaly. : (+) Grey in place draining urine Back/Pelvis: Deferred Extremity: No clubbing, No cyanosis and No edema Neuro: Inutated.. CN normal except as noted. 5/5 motor strength present throughout. Normal motor muscle tone present throughout. No tremor noted. No motor abnormalities present. No motor fasciculations present Psych: Unable to be assessed given the patient's mental condition. Data 01/01/25 00:42 01/01/25 00:42 A&P Assessment and plan (1) New onset seizure: (2) Status epilepticus: (3) Acute respiratory failure with hypoxia and hypercapnia: (4) Lactic acidosis: Plan Lizzeth Toscano is a 39 year old female w/ IBS, ADHD, Generalized Anxiety d/o, MDD, Endometriosis, Adenomyosis, Raynaud's disease and who was brought to the ED in the registered health nurse hours of 01/01/2025, via EMS for new onset seizures. #Altered Mental Status #Seizures/ #Status Epilepticus: -Appreciate neurology's recommendations -Continue Keppra. Plan for EEG #Acute hypoxic hypercapnic respiratory failure - Continue to wean from the ventilator and wean sedation. Patient ABG improved. #SIRS #Possible Shock - etiology unclear - Keep MAP>65 - F/u BCx, Respiratory Pathogen Panel - Start Empirc Vanc, Zosyn, Azithromycin - S/p 2L total upon admission to the ICU. I00cc/hr of NS started #Lactic acidosis: Either due to seizure or infection - Continue to trend. #Marijuana use d/o #ADHD, Generalized Anxiety d/o, MDD, #IBS #Endometriosis, Adenomyosis, #Raynaud's disease DVT ppx: Lovenox GI ppx: Pantoprazole PDMP PDMP Reviewed: Not Reviewed Attestations 2 Medical Necessity Statement*: The patient will need to be hospitalized for greater than 2 midnights for her acute hypoxic and hypercapnic respiratory failure, seizures, possible shock, and severe lactic acidosis. Coding Level of Care Code Critical Care >/= 30 minutes Critical care time (in minutes): 65 The high probability of a clinically significant, sudden or life threatening deterioration, as referenced in this documentation, required my full and direct attention, intervention and personal management. The critical care time shown is in addition to time spent performing any reported separately billable procedures and includes the following: [x] Data and vital sign review and interpretation [x ] Patient assessment, examination and intervention [x] Medication orders and management [x] Patient/Family updates as able [x] Care Coordination and Documentation. Diagnoses New onset seizure R56.9 Status epilepticus G40.901 Acute respiratory failure with hypoxia and hypercapnia J96.01; J96.02 Lactic acidosis E87.20
[2025-01-01] MEDS: midazolam hcl 100 MG/100 ML BAG 6 MG IV (02:22)
[2025-01-01 02:42] LABS: Reflex Lactate Order REFLEX LACTIC ORDERD
[2025-01-01] MEDS: sodium chloride 0.9% 1,000 ML 500 ML IV (03:09)
[2025-01-01] MEDS: propofol 1,000 MG/100 ML INJ 9.78 MG IV (03:09)
[2025-01-01] MEDS: fentaNYL 1,000 MCG/100 ML BAG 20 MCG IV (03:10)
--- NOTE | 2025-01-01 03:10 | PC.NURSE ---
Pt arrived to ICU at 0235, purposeful movement of all ext, versed at 6 ml/hr, temp 96 rectally, skin cool to touch. Raysa hugger applied. Dr. Lucila Frances at bedside shortly after arrival, new orders received for fentanyl and propofol and orders for starting rates and titrations outside facility protocol given verbally per physician.
--- NOTE | 2025-01-01 04:02 | P.CONIM_ITS ---
Providers/Reason For Consult 2 Consulting Physician/Specialty*: Lam Durán MD neurology and epilepsy Reason for Consult*: New onset status epilepticus Attending Physician: Elise Link MD Primary Care Provider: Roberto Doanldson History of Present Illness History of Present Illness Lizzeth Toscano is a 39 year old female with a history of iron deficiency anemia who presented with new onset seizures with status epilepticus on 12/31/2024. According to the ER physician the patient was witnessed by her to experience a grand mal seizure. EMS was contacted and the patient was reported to be given Versed en route. In the emergency room there was reports the patient had a second grand mal seizure with prolonged postictal state associated with some respiratory issues and neurology consult was obtained. In view of the patient's respiratory issues and decreased level consciousness I recommended IV Keppra 1 g IV load followed by 500 mg IV every 12 hours and recommended intubation if warranted. The patient was intubated and started on IV propofol. No obvious clinical seizures were reported following the emergency room physician evaluation. Patient admitted to the ICU bed #5. Drug allergies: Gabapentin which resulted in dizziness Maxalt type reaction unknown Current medications: Effexor XR 75 mg p.o. daily Amoxicillin 875 mg p.o. every 12 hours Prednisone 20 mg to take as instructed Chlorhexidine gluconate 0.12% mouthwash 15 mL daily Desiccated beef organs orally Iron sulfate 3 and 25 mg p.o. daily Past medical history: Iron deficiency anemia Palpitation Lumbar disc disease Herpes simplex type 2Mild intermittent asthma in childhoodIBS (irritable bowel syndrome) diagnosed by GI. hx of colonoscopy.Raynauds disease Calcium kidney stones Adenomyosis Endometriosis Ovarian cyst ADHD Major depression Generalized anxiety disorder Surgical History Hx of wisdom tooth extraction Hx of cholecystectomy History of salivary gland disease had a stone and then had gland removal History of removal of ovarian cyst X3 Family History Other Anesthesia complication Autoimmune disease CAD (coronary artery disease) Cancer Diabetes mellitus type 1 Heart disease Hypertension Prostate cancer Skin cancer Stroke Ulcerative colitis Habits: Patient reports positive drug screen for marijuana Review of Systems 2 General: Reports: ROS unobtainable due to endotracheal tube and ROS unobtainable due to medical condition Medications/Allergies Home Medications ?Medication ?Instructions ?Recorded ?Confirmed ?Last Taken ?Type Dessicated Beef organs PO 08/26/24 11/01/24 Unknown History ferrous sulfate 324 mg (65 mg 324 mg PO DAILY #30 tabs 08/28/24 11/01/24 Unknown Rx iron) tablet,delayed release amoxicillin 875 mg tablet 875 mg PO Q12H #14 tabs 10/0411/01/24 Unknown Rx chlorhexidine gluconate 0.12 % 15 ml buccal DAILY #120 mL 11/01/24 11/01/24 Unknown Rx mouthwash (Peridex) prednisone 20 mg tablet See Rx Instructions .Route 0 11/01/24 11/01/24 Unknown Rx .COMPLEX #14 tabs venlafaxine 75 mg capsule,extended 75 mg PO QAM #30 ca ps 12/02/24 Unknown Rx release 24 hr Allergies Allergy/AdvReac Type Severity Reaction Status Date / Time gabapentin Allergy Intermediate ADR-Dizzine Verified 12/31/24 23:51 ss rizatriptan (From Maxalt) Allergy Mild Unknown Verified 11/01/24 08:02 Current Medications Generic Name Dose Route Start Last Admin Trade Name Freq PRN Reason Stop Dose Admin Midazolam HCl 100 mg in 100 mls @ 0 mls/hr 01/01/25 01:15 01/01/25 02:22 Versed IV 6 mg/hr .Q0M IVANA 6 mls/hr Administration Protocol Per Protocol Propofol 1,000 mg in 100 mls @ 0 mls/hr 01/01/25 02:45 01/01/25 03:58 Diprivan IV 10 mcg/kg/min .Q0M IVANA 4.89 mls/hr Titration Protocol Per Protocol Fentanyl 1,000 mcg in 100 mls @ 0 mls/hr 01/01/25 03:00 01/01/25 03:10 Sublimaze IV 200 mcg/hr .Q0M IVANA 20 mls/hr Administration Protocol Per Protocol Sodium Chloride 1,000 mls @ 500 mls/hr 01/01/25 03:00 01/01/25 03:09 Sodium Chloride 0.9% IV 500 mls/hr .Q2H IVANA Administration PFSH Acute 2 PFSH: Medical History Iron deficiency anemia Palpitation Lumbar disc disease Herpes simplex type 2 Mild intermittent asthma in childhood IBS (irritable bowel syndrome) diagnosed by GI. hx of colonoscopy. Raynauds disease Calcium kidney stones Adenomyosis Endometriosis Ovarian cyst ADHD Major depression Generalized anxiety disorder Surgical History Hx of wisdom tooth extraction Hx of cholecystectomy History of salivary gland disease had a stone and then had gland removal History of removal of ovarian cyst X3 Family History Other Anesthesia complication Autoimmune disease CAD (coronary artery disease) Cancer Diabetes mellitus type 1 Heart disease Hypertension Prostate cancer Skin cancer Stroke Ulcerative colitis Social History Smoking and tobacco/nicotine status: current every day tobacco/nicotine user (vapes) Alcohol intake: current Alcohol intake frequency: holidays/special occasions only Substance/Drug Use: current Other substance/drug use details: pen-helps with anxiety, once/week Vitals/I&O/Wt Last Vital Signs Temp 98.3 F 12/31/24 23:44 Pulse 94 01/01/25 02:53 Resp 16 01/01/25 02:20 BP 115/86 01/01/25 02:53 Pulse Ox 100 01/01/25 02:53 O2 Del Method Mechanical Ventilation 01/01/25 02:55 FiO2 50 01/01/25 02:08 12/31/24 12/31/24 01/01/25 14:59 22:59 06:59 Intake Total 1107.092 / 1107.092 Balance 1107.092 / 1107.092 Weight last 48 hrs Weight 179 lb 10.828 oz Physical Exam 2 Narrative: The patient is currently intubated and sedated on propofol IV drip Pupils 3 mm and appear to be reactive to light and accommodation. Head atraumatic. Neck supple. Cranial nerves II through XII revealed no obvious facial weakness. Motor testing: According to the nurse the patient was moving all extremities prior to sedation with IV propofol. Deep tendon reflex revealed extensive plantar responses bilaterally. There was no clonus. Sensory examination difficult to assess secondary to IV propofol sedation. Throat clear. Lungs revealed no obvious wheezing. Heart regular rhythm and rate. Extremities were negative for cyanosis. Urinary Catheter Management: Grey: Cath Placed During This Visit: yes Urinary Catheter Date of Insertion: 01/01/25 Data 01/01/25 00:42 01/01/25 00:42 A&P Assessment and plan (1) Status epilepticus: Impression: 1. New onset status epilepticus manifested as generalized tonic-clonic seizures 12/31/2024 2. Respiratory failure requiring intubation and sedation on IV propofol for 10/21/2024 3. History of major depression and anxiety 4. Drug screen positive for marijuana 5. Iron deficiency anemia Plan: 1. Continue IV Keppra 500 mg every 12 hours 2. Ativan 1 to 2 mg IV as needed for seizure lasting greater than 2 minutes or greater than 2 seizures within a 1 hour period of time 3. Seizure precautions per state law 4. Fall precautions 5. Attempt extubation when possible 6. If mental status does not improve will recommend obtaining inpatient portable EEG to assess for subclinical seizures/subclinical status epilepticus (2) New onset seizure: (3) Respiratory failure: PDMP PDMP Reviewed: Not Reviewed Consult Attestations 2 Medical Necessity Statement: The patient was evaluated by neurology for status epilepticus, new onset Coding Level of Care Code 98981 Diagnoses Status epilepticus G40.901 New onset seizure R56.9 Respiratory failure J96.90
[2025-01-01] MEDS: dexamethasone 10 mg/mL INJ IVP (04:38)
[2025-01-01 04:41] LABS: Glucose Point of Care 105 mg/dL (70-110)
[2025-01-01 05:00] LABS: ABG PH Result 6.88 (7.35-7.45)
[2025-01-01 05:02] LABS: ABG PCO2 32.4 mmHg (35-45); ABG PH Result 7.43 (7.35-7.45); Arterial Blood Gas Hematocrit 36.6 % (37-47); Base Excess ABG -2.1 mmol/L (-2.0-2.0); Blood Gas Allen Test Pos; Blood Gas Operator Identificat SAM; Blood Gas Sample Site Radial, right; Blood Gas Sample Type Arterial; Blood Gas Tidal Volume 0.45; Carboxyhemoglobin 0.5 %THgb (0.4-20.1); HCO3 ABG 21.5 mmol/L (22-26); HGB O2 Sat 98.9 % (95-100); Ionized Calcium Level - ABG 1.1 mmol/L (1.1-1.4); Methemoglobin 0.5 % (0.4-1.5); Oxygen Device VENT; Oxygen Saturation ABG > 99.1; PO2 FiO2 Ratio Arterial Blood 417; Potassium Level - ABG 3.5 mmol/L (3.5-5.0); Total Hemoglobin 11.9 g/dL (12-16)
[2025-01-01] MEDS: sodium chloride 0.9% 1,000 ML 250 ML IV (05:45)
--- NOTE | 2025-01-01 06:00 | ECG_ITS ---
[facility] Date: 2025-[facility]-01 Pat Name: Lizzeth Toscano Department: Room: [facility] Gender: Female Data Analyst: : 1985 Requested By: Elise Link Order Number: [id number] Reading MD: JANE DODSON Measurements Intervals [place] Rate: 59 P: 55 SD: 157 QRS: 70 QRSD: 91 T: 72 QT: 436 QTc: 434 Interpretive Statements SINUS BRADYCARDIA LOW QRS VOLTAGE IN PRECORDIAL LEADS [QRS DEFLECTION < 1.0 mV IN CHEST LEADS] No previous ECG available for comparison Electronically Signed On 01-05-2025 21:53:34 CDT by JANE DODSON [email or web address]
--- NOTE | 2025-01-01 07:20 | PHA.VACGOAL ---
Vancomycin Goal - Goal Vancomycin Goal:: 15-20 mg/L Vancomycin Indication:: Other - Therapy Current therapy:: Pip/Tazo Day of therpy:: Day 1 of [] . Actual body weight (kg): 178 lb 9.191 oz - Data Labs: WBC 15.63 10^3/uL (3.29-11.43) H 01/01/25 00:42 RBC 4.90 10^6/uL (3.85-5.65) 01/01/25 00:42 Hgb 13.60 g/dL (11.27-16.99) 01/01/25 00:42 Hct 41.9 % (36-47) 01/01/25 00:42 MCV 85.5 fl (85-98) 01/01/25 00:42 MCH 27.8 pg (27-33) 01/01/25 00:42 MCHC 32.5 g/dL (30-55) 01/01/25 00:42 RDW 12.2 % (12.1-15.1) 01/01/25 00:42 Sodium 140 mmol/L (136-145) 01/01/25 00:42 Potassium 3.7 mmol/L (3.5-5.1) 01/01/25 00:42 Chloride 103 mmol/L (98-107) 01/01/25 00:42 Carbon Dioxide 22 mmol/L (22-29) 01/01/25 00:42 Anion Gap 18.7 (5-19) 01/01/25 00:42 BUN 11 mg/dL (6-20) 01/01/25 00:42 Creatinine 0.8 mg/dL (0.5-0.9) 01/01/25 00:42 GFR Calculation 79.4 mL/min (90-130) L 01/01/25 00:42 Last dialysis session:: N/A Treatment plan:: new consult Regimen:: LOADING DOSE OF 2000 MG PER DOSING PROTOCOL. MAINTENANCE DOSE OF 1000 MG Q8H Follow up:: WILL CONTINUE TO MONITOR AND FOLLOW UP DAILY
[2025-01-01] MEDS: fentaNYL 1,000 MCG/100 ML BAG 17.5 MCG IV (07:47)
[2025-01-01 08:03] LABS: Basophils % 0.1 %; Hematocrit 38.1 % (36-47); Lymphocytes # 0.5 10^3/uL (0.8-4.8); Mean Corpuscular HGB Conc 32.3 g/dL (30-55); Mean Corpuscular Volume 86.6 fl (85-98); Mean Platelet Volume 9.9 fL (7.4-10.4); Monocytes # 0.4 10^3/uL (0.2-0.9); Neutrophils # 12.49 10^3/uL (1.8-7.7); Neutrophils % 92.5 %; Nucleated Red Blood Cells % 0 %; Platelet Count 272 10^3/cmm (157-399); Red Cell Distribution Width 12.4 % (12.1-15.1); White Blood Count 13.51 10^3/uL (3.29-11.43)
[2025-01-01] MEDS: pantoprazole 40 mg SDV IVP (08:03)
[2025-01-01] MEDS: piperacillin-tazobactam 4.5 GM in sodium chloride 0.9% (plus) 50 ML IV ×3 (08:03→21:52)
[2025-01-01] MEDS: docusate sodium 100 mg Capsule 200 MG PO (08:03)
[2025-01-01] MEDS: sennosides 8.6 mg Tablet 17.2 MG PO (08:03)
[2025-01-01] MEDS: vancomycin 2,000 MG/400 ML PIGGYBACK 200 MG IV (08:04)
[2025-01-01] MEDS: levETIRAcetam 500 MG/100 ML PREMIX 400 MG IV ×2 (08:04→21:53)
[2025-01-01 08:12] LABS: INR 1.01 (0.8-1.2)
[2025-01-01 08:14] LABS: Partial Thromboplastin Time 26.9 SECONDS (23.9-36.7)
[2025-01-01 08:18] LABS: Lactic Sepsis W/Reflex 2.2 mmol/L (0.5-2.2)
[2025-01-01 08:19] LABS: Alanine Aminotransferase 21 U/L (0-33); Albumin Level 3.7 g/dL (3.5-5.2); Alkaline Phosphatase 74 U/L (35-105); Anion Gap 7.9 (5-19); Aspartate Amino Transferase 19 U/L (0-32); Blood Urea Nitrogen 9 mg/dL (6-20); Calcium 7.9 mg/dL (8.5-10.5); Carbon Dioxide 26 mmol/L (22-29); Chloride 109 mmol/L (98-107); Creatinine Clr Calc Pharmacy 139.1875; Globulin 2.4 g/dL (1.3-4.6); Glomerular Filtration Rate 110.7 mL/min (90-130); Glucose 97 mg/dL (65-115); Osmolality Calculated 287 mOsm/kg (285-295); Potassium 3.9 mmol/L (3.5-5.1); Sodium 139 mmol/L (136-145); Total Bilirubin 0.3 mg/dL (0.15-1.2); Total Protein 6.1 g/dL (6.6-8.7)
[2025-01-01 09:10] LABS: Adenovirus Not Detected (NOT DETECT); Chlamydia Pneumoniae Not Detected (NOT DETECT); Coronavirus 229E,HKU1,NL63,OC4 Not Detected (NOT DETECT); Human Metapneumovirus Not Detected (NOT DETECT); Human Rhinovirus/Enterovirus Not Detected (NOT DETECT); Influenza A Not Detected (NOT DETECT); Influenza A H1 Not Detected (NOT DETECT); Influenza A H1-2009 Not Detected (NOT DETECT); Influenza A H3 Not Detected (NOT DETECT); Influenza B Not Detected (NOT DETECT); Mycoplasma Pneumoniae Not Detected (NOT DETECT); Parainfluenza Virus Type 1 Not Detected (NOT DETECT); Parainfluenza Virus Type 2 Not Detected (NOT DETECT); Parainfluenza Virus Type 3 Not Detected (NOT DETECT); Parainfluenza Virus Type 4 Not Detected (NOT DETECT); Respiratory Syncytial Virus A Not Detected (NOT DETECT); Respiratory Syncytial Virus B Not Detected (NOT DETECT); SARS-COV-2 Not Detected (NOT DETECT)
--- NOTE | 2025-01-01 09:35 | PC.NUTR ---
TF consult received. Recommend Jevity 1.5 beginning @ 20cc/hr and increasing 10cc Q4-8H as tolerated until goal rate of 40cc/hr is reached with FWF 120mls Q4H or per MD discretion.
[2025-01-01 09:39] LABS: Reflex Lactate Order REFLEX LACTIC ORDERD
[2025-01-01] MEDS: sodium chloride 0.9% 1,000 ML 100 ML IV (10:43)
[2025-01-01 11:23] LABS: Lactic Acid level (Lactate) 0.8 mmol/L (0.5-2.2)
--- NOTE | 2025-01-01 12:05 | MRR_ITS ---
PROCEDURE INFORMATION: Exam: MR Head Without Contrast Exam date and time: 01/01/2025 5:13 PM Age: 39 years old Clinical indication: Other: New onset seizure; Additional info: New onset seizure, new onset seizure, concern for vasculitis, PT is intubated on hold for now TECHNIQUE: Imaging protocol: Magnetic resonance imaging of the head without contrast. COMPARISON: CT head w con [id number] 01/01/2025 1:35 AM FINDINGS: Brain: Normal. No acute infarct. No hemorrhage. No significant white matter disease. No edema. No heterotopic suarez matter visualized. Cerebral ventricles: Normal. No ventriculomegaly. Bones: Unremarkable. Paranasal sinuses: Normal as visualized. No acute sinusitis. Mastoid air cells: Normal as visualized. No mastoid effusion. Orbital cavities: Unremarkable. Soft tissues: Unremarkable. MR/MR head wo/w con [id number] IMPRESSION: No acute findings.
--- NOTE | 2025-01-01 13:51 | P.MISC_ITS ---
Miscellaneous Note Purpose of Documentation: patient seen in the ICU, intubated, currently on mechanical ventilation. S edated with fentanyl and Versed. ABG this morning is much improved. pH of 7.43, pCO2 of 32.4, pO2 of 167, bicarb of 21.5 on FiO2 of 40%, tidal volume 450, PEEP of 5. Patient is currently awake with weaning down sedation and appears to follow all commands. Will attempt to extubate given reassuring parameters. Patient is 39 years old, presenting with new onset seizures. Possibility of meningitis is not excluded at this time given elevated white blood cell count and soft blood pressure. Patient was started on piperacillin/tazobactam and vancomycin overnight. We will continue this for now. Obtain lumbar puncture fluoroscopically with IR. Obtain CSF analysis, cell count, total protein, glucose, Gram stain and culture, cryptococcal antigen and CSF VDRL. Check serum RPR check serum RPR and FTA-ABS, HIV serology. Additionally obtain MRI of the brain with and without contrast and assess for potential underlying vasculitis. Review of MAR shows patient is on desiccated beef organ capsule ?? indication ?? pasteurization status? Called to patient's mother's phone number were not answered. Will attempt to get more information from the patient once extubated.
[2025-01-01] MEDS: ondansetron 2 mg/ML SDV 2 mL 4 MG IVP (14:08)
--- NOTE | 2025-01-01 15:06 | PC.NURSE ---
This nurse along with IVANIA Mckeon waisted: 55.134 mls of versed 23.459 mls of fentanyl 87.893 mls of propofol
--- NOTE | 2025-01-01 15:13 | PC.NURSE ---
Addendum entered by Wyatt Carbajal RN 01/01/25 15:42: Patient self extubated at 1400. Original Note: All sedation was turned off for a breathing trial. Patient was becoming very agitated while a breathing trial was being performed by respiratory therapist. Patient would have apneic episodes and failed the breathing trial. Patient started to become manic and started pulling at their ET tube.Doctor Kvng was contacted and came down to take a look at the patient. Patient was trashing around not following commands. Respiratory therapist was trying to reorient patient and trying to keep the patient from pulling their ET tube out. Patient kept fighting unable to follow commands and managed to pull their ET tube even though they were in restraints. Patient was immediately sat up and started to throw up.Patient's mouth was suctioned. ET tube was intact and OG tube was also intact. Patient is resting comfortably in bed.
[2025-01-01 15:23] LABS: HIV 1 & 2 Antibody Non-Reactive (Non-Reactiv); HIV 1 & 2 Antigen Non-Reactive (Non-Reactiv); Hepatitis A Antibody IgM Non-Reactive (Nonreactive); Hepatitis B Core AB, Total Non-Reactive (Nonreactive); Hepatitis B Surface AB < 3.5 (11.5-1000); Hepatitis B Surface Antigen Non-Reactive (Nonreactive); Hepatitis C Virus Antibody Non-Reactive (Nonreactive)
[2025-01-01] MEDS: gadobenate dimeglumine 20 mL vial 19 ML IV (17:36)
[2025-01-01] MEDS: VANCOMYCIN ADD-Vantage 1,000 MG in 0.9% NaCl ADD-Vantage 250 ML 250 MG IV (18:36)
--- NOTE | 2025-01-01 18:50 | PC.NURSE ---
Unable to take patient to spinal tap procedure. Tornado warning occurred and after the warning was lifted the radiologist had already went home.
[2025-01-01] MEDS: enoxaparin 40 mg/0.4 mL Syringe SUBCUT (21:51)
[2025-01-02] VITALS (42 sets, daily range): BP systolic 83–113; BP diastolic 43–68; PULSE 53–105; RESP 7–32; TEMP 36.8–37.1; O2SAT 90–99; BMI 27.1
[2025-01-02] MEDS: norepinephrine 4 MG/250 ML BAG 7.5 MG IV (00:50)
[2025-01-02] MEDS: VANCOMYCIN ADD-Vantage 1,000 MG in 0.9% NaCl ADD-Vantage 250 ML 250 MG IV ×2 (01:18→09:24)
[2025-01-02 04:07] LABS: Basophils % 0.2 %; Hematocrit 31.1 % (36-47); Lymphocytes % 12.5 %; Mean Corpuscular HGB Conc 31.8 g/dL (30-55); Mean Corpuscular Volume 84.7 fl (85-98); Mean Platelet Volume 10.1 fL (7.4-10.4); Monocytes % 6.4 %; Neutrophils # 12.49 10^3/uL (1.8-7.7); Neutrophils % 80.3 %; Nucleated Red Blood Cells % 0 %; Platelet Count 234 10^3/cmm (157-399); Red Blood Count 3.67 10^6/uL (3.85-5.65); Red Cell Distribution Width 12.8 % (12.1-15.1); White Blood Count 15.56 10^3/uL (3.29-11.43)
[2025-01-02 04:29] LABS: Alanine Aminotransferase 18 U/L (0-33); Albumin Level 3.4 g/dL (3.5-5.2); Alkaline Phosphatase 70 U/L (35-105); Anion Gap 13.5 (5-19); Aspartate Amino Transferase 17 U/L (0-32); Blood Urea Nitrogen 6 mg/dL (6-20); Calcium 7.7 mg/dL (8.5-10.5); Carbon Dioxide 19 mmol/L (22-29); Chloride 113 mmol/L (98-107); Creatinine Clr Calc Pharmacy 119.3036; Glomerular Filtration Rate 92.7 mL/min (90-130); Glucose 96 mg/dL (65-115); Osmolality Calculated 291 mOsm/kg (285-295); Potassium 3.5 mmol/L (3.5-5.1); Sodium 142 mmol/L (136-145); Total Bilirubin 0.4 mg/dL (0.15-1.2); Total Protein 5.4 g/dL (6.6-8.7)
[2025-01-02 04:37] LABS: Magnesium 1.9 mg/dL (1.7-2.3)
[2025-01-02] MEDS: pantoprazole 40 mg SDV IVP (05:36)
[2025-01-02] MEDS: piperacillin-tazobactam 4.5 GM in sodium chloride 0.9% (plus) 50 ML IV ×3 (05:37→22:26)
[2025-01-02] MEDS: levETIRAcetam 500 MG/100 ML PREMIX 400 MG IV ×2 (09:23→21:16)
[2025-01-02] MEDS: docusate sodium 100 mg Capsule 200 MG PO (09:25)
[2025-01-02] MEDS: sennosides 8.6 mg Tablet 17.2 MG PO (09:25)
[2025-01-02] MEDS: ondansetron 2 mg/ML SDV 2 mL 4 MG IVP (10:01)
--- NOTE | 2025-01-02 11:03 | FL_ITS ---
WS: [id number] LUMBAR PUNCTURE CLINICAL INFORMATION: LP COMPARISON: None. TECHNIQUE: Informed consent: The procedure and its potential risk and complications were discussed with the patient. Verbal and written consent was obtained. Timeout: A timeout was performed to confirm correct patient, procedure, and site. Patient was prepped and draped in the usual sterile fashion. Lidocaine 1% was used for local anesthesia. Utilizing fluoroscopic guidance, a 3.5 inch 22-gauge spinal needle was advanced into the subarachnoid space at L3-L4 via LEFT oblique sublaminar approach. Free flow of clear CSF was obtained. 12 cc of CSF was collected and sent the lab for further analysis. FLUOROSCOPIC TIME: 1min [id number] # of spot films: 1 FL/FL guided lumbarpunc dx* [id number] IMPRESSION: Fluoroscopically guided lumbar puncture. No immediate complications
[2025-01-02 11:54] LABS: Cyto Order Verification No Order
[2025-01-02 12:15] LABS: CSF Mononuclear # 0.002 10^3/uL (50-90); Mononuclear WBC CSF % 67 % (50-90); Polynuclear Cells ,CSF # 0.001 10^3/uL (0-10); Polynuclear WBC CSF % 33 % (0-10); Red Blood Cell CSF 0 10^3/uL (0-0); White Blood Cell CSF 3 /uL (0-5)
[2025-01-02 12:24] LABS: Glucose CSF 57 mg/dL (40-70); Total Protein CSF 15 mg/dL (15-45)
[2025-01-02 13:13] LABS: Appearance CSF CLEAR (CLEAR); Color CSF COLORLESS (COLORLESS)
[2025-01-02 13:14] LABS: Pathology Referral Yes
--- NOTE | 2025-01-02 14:23 | CTR_ITS ---
PROCEDURE INFORMATION: Exam: CT Abdomen And Pelvis With Contrast Exam date and time: 01/02/2025 5:29 PM Age: 39 years old Clinical indication: Other: Suspected appendicitis TECHNIQUE: Imaging protocol: Computed tomography of the abdomen and pelvis with contrast. Radiation optimization: All CT scans at this facility use at least one of these dose optimization techniques: automated exposure control; mA and/or kV adjustment per patient size (includes targeted exams where dose is matched to clinical indication); or iterative reconstruction. Contrast material: OMNIPAQUE 350; Contrast volume: 100 ml; Contrast route: INTRAVENOUS (IV); COMPARISON: CR (CHEST, ) 12/31/2024 11:58 PM RADIATION DOSE METRICS: Total DLP (mGy-cm): 920.9 FINDINGS: Lungs: Benign calcified left lower lobe granulomas. Faint ground-glass opacities in the left lung base. Mild right basilar atelectasis/scarring. Liver: No mass. Gallbladder and biliary ducts: Status post cholecystectomy. Extrahepatic and intrahepatic biliary ductal dilatation. The common bile duct measures up to 1.5 cm in caliber with smooth tapering distally. No abrupt cut off is visualized. Pancreas: Normal. No ductal dilation. Spleen: Calcified splenic granulomas. Normal size. Adrenal glands: Normal. No mass. Kidneys and ureters: Normal. No hydronephrosis. Stomach and bowel: Moderate stool in the sigmoid colon and rectum. No evidence of bowel obstruction. Appendix: Appendix is normal in caliber. Trace periappendiceal fluid is noted. Intraperitoneal space: Trace free pelvic fluid. Vasculature: Unremarkable. No abdominal aortic aneurysm. Lymph nodes: Unremarkable. No enlarged lymph nodes. Urinary bladder: Unremarkable as visualized. Reproductive: 2.1 cm right adnexal cystic structure likely represents a dominant follicle. No suspicious adnexal mass. Bones/joints: Unremarkable. No acute fracture. Soft tissues: Small fat containing umbilical hernia. Likely post-injection changes in the anterior abdominal wall. CT/CT abdomen pelvis w con* [id number] IMPRESSION: 1. Normal caliber appendix with trace periappendiceal fluid, the latter of which may be related to small volume free pelvic fluid. However, early/mild acute appendicitis is not excluded in the correct clinical setting. 2. Small volume free pelvic fluid may be physiologic or could be related to mild inflammation. 3. Moderate colorectal stool may reflect constipation. 4. Status post cholecystectomy. 5. Extrahepatic and intrahepatic biliary ductal dilatation is greater than expected for cholecystectomy changes. No abrupt cut off visualized. Nonemergent MRCP could be considered for further evaluation.
--- NOTE | 2025-01-02 14:29 | P.PN_ITS ---
Subjective 2 Subjective: Patient was extubated yesterday. Currently on room air saturating well. Continues to have persistent leukocytosis. Blood pressure soft, needed midodrine overnight. Medications: Reviewed: Yes Vitals/I&O/Wt Last Vital Signs Temp 98.3 F 01/02/25 01:56 Pulse 55 L 01/02/25 07:05 Resp 15 01/02/25 07:05 BP 96/59 01/02/25 07:05 Pulse Ox 99 01/02/25 07:05 O2 Del Method Nasal Cannula 01/01/25 18:48 O2 Flow Rate 2 01/01/25 18:48 FiO2 30 01/01/25 13:25 01/01/25 01/02/25 01/02/25 22:59 06:59 14:59 Intake Total 300 / 646.075 5767 / 4128.957 670.25 / 670.25 Output Total 900 / 900 Balance -600 / -839.375 9907 / 3228.957 670.25 / 670.25 Weight last 48 hrs Weight 81 kg Weight 81 kg Weight 81 kg Weight 81.193 kg Weight 81.5 kg Physical Exam 2 Narrative: General: No acute distress, AO x3 HEENT: PERRLA, pupils bilaterally equal and reactive, pallors not present Chest: Normal vesicular breath sounds, no added sounds, equal good air entry bilaterally CVS: S1-S2 regular, no murmurs, no tachycardia, no gallops, no rubs Abdomen: Soft, tender to palpation in the right lower quadrant r, no organomegaly, bowel sounds present Neuro: No focal deficits, no facial deformity, AO x3, power 5/5 in all limbs Urinary Catheter Management: Grey: Cath Placed During This Visit: yes Reason for Continuing Indwelling Catheter: Accurate Measurement of Urinary Output in Critically Ill Patients Urinary Catheter Date of Insertion: 01/01/25 Data 01/02/25 03:45 01/02/25 03:45 Micro: Microbiology 01/02/25 11:07 Gram Stain - Final Cerebrospinal Fluid Cryptococcal Antigen (CSF) - Final 01/01/25 05:04 Blood Culture - Preliminary Blood NEGATIVE TO DATE 01/01/25 04:50 Blood Culture - Preliminary Blood NEGATIVE TO DATE A&P Assessment and plan (1) New onset seizure: (2) Status epilepticus: (3) Acute respiratory failure with hypoxia and hypercapnia: (4) Lactic acidosis: Plan Lizzeth M Toscano is a 39 year old female w/ IBS, ADHD, Generalized Anxiety d/o, MDD, Endometriosis, Adenomyosis, Raynaud's disease and who was brought to the ED in the [facility] of 01/01/2025, via EMS for new onset seizures. #Altered Mental Status #Seizures/ #Status Epilepticus: -Appreciate neurology's recommendations -Continue Keppra. Plan for EEG #Acute hypoxic hypercapnic respiratory failure - Continue to wean from the ventilator and wean sedation. Patient ABG improved. #SIRS #Possible Shock - etiology unclear - Keep MAP>65 - F/u BCx, Respiratory Pathogen Panel - Start Empirc Vanc, Zosyn, Azithromycin - S/p 2L total upon admission to the ICU. I00cc/hr of NS started #Lactic acidosis: Either due to seizure or infection - Continue to trend. #Marijuana use d/o #ADHD, Generalized Anxiety d/o, MDD, #IBS #Endometriosis, Adenomyosis, #Raynaud's disease DVT ppx: Lovenox GI ppx: Pantoprazole January 02, 2025 Patient was extubated yesterday. No respiratory issues postextubation. Has a mild sore throat. MRI was able to be completed last evening which was grossly normal. Lumbar puncture was performed this morning which showed CSF cell count of 3, glucose 57, total protein of 15, overall picture not concerning for meningitis. Will discontinue vancomycin. Continues to have a persistent leukocytosis and soft blood pressure. Patient did get doses of midodrine overnight. Start IV fluids normal saline at 75 cc an hour. Additionally while patient's vomiting is better today she does complain of abdominal pain. There is tenderness to palpation in the right lower quadrant. Concern for potential appendicitis. Obtain CT of the abdomen and pelvis with contrast. Patient also has a known history of adenomyosis and endometriosis for which she was to follow with [facility], however has not yet had any surgical intervention for the same. No noted seizures in the hospital. Transition IV to oral Keppra once appendicitis has been ruled out. Transfer out of ICU to [facility] PDMP PDMP Reviewed: Not Reviewed Attestations 2 Medical Necessity Statement*: CT of the abdomen and pelvis to evaluate for persistent leukocytosis. LP MRI negative. No seizures encountered in the hospital. Coding Level of Care Code Acute Code for Chg Fwd Diagnoses New onset seizure R56.9 Status epilepticus G40.901 Acute respiratory failure with hypoxia and hypercapnia J96.01; J96.02 Lactic acidosis E87.20
[2025-01-02] MEDS: venlafaxine ER (24HR) 75 mg Capsule PO (15:19)
[2025-01-02] MEDS: sodium chloride 0.9% 1,000 ML 75 ML IV (15:20)
[2025-01-02] MEDS: iohexol 350 mg/mL 500 mL Btl (per mL) IV (17:45)
--- NOTE | 2025-01-02 17:55 | PC.NURSE ---
Report was given to IVANIA Kessler in [facility]. Patient was transferred with all belongings. Patient was stable during transfer.
[2025-01-02] MEDS: enoxaparin 40 mg/0.4 mL Syringe SUBCUT (21:16)
[2025-01-03] VITALS: BP 93/60; PULSE 63; RESP 17; TEMP 36.7; O2SAT 95
[2025-01-03] MEDS: sodium chloride 0.9% 1,000 ML 75 ML IV (04:23)
[2025-01-03 04:59] VITALS: BP 95/56; PULSE 58; RESP 17; TEMP 36.6; O2SAT 96
[2025-01-03 05:58] LABS: Basophils # 0.1 10^3/uL (0.0-0.1); Basophils % 0.7 %; Eosinophils % 0.1 %; Hematocrit 30.4 % (36-47); Lymphocytes # 1.4 10^3/uL (0.8-4.8); Mean Corpuscular HGB Conc 32.2 g/dL (30-55); Mean Corpuscular Hemoglobin 27.4 pg (27-33); Mean Corpuscular Volume 84.9 fl (85-98); Mean Platelet Volume 10.5 fL (7.4-10.4); Monocytes # 0.4 10^3/uL (0.2-0.9); Monocytes % 6.2 %; Neutrophils # 4.88 10^3/uL (1.8-7.7); Neutrophils % 71.6 %; Nucleated Red Blood Cells % 0 %; Platelet Count 186 10^3/cmm (157-399); Red Blood Count 3.58 10^6/uL (3.85-5.65); White Blood Count 6.82 10^3/uL (3.29-11.43)
[2025-01-03 06:00] VITALS: PULSE 59
[2025-01-03] MEDS: piperacillin-tazobactam 4.5 GM in sodium chloride 0.9% (plus) 50 ML IV (06:11)
[2025-01-03] MEDS: venlafaxine ER (24HR) 75 mg Capsule PO (06:11)
[2025-01-03] MEDS: pantoprazole 40 mg SDV IVP (06:11)
[2025-01-03 06:18] LABS: Magnesium 1.8 mg/dL (1.7-2.3)
[2025-01-03 06:22] LABS: Alanine Aminotransferase 15 U/L (0-33); Albumin Level 3.6 g/dL (3.5-5.2); Alkaline Phosphatase 66 U/L (35-105); Aspartate Amino Transferase 14 U/L (0-32); Blood Urea Nitrogen 6 mg/dL (6-20); Carbon Dioxide 20 mmol/L (22-29); Chloride 110 mmol/L (98-107); Creatinine Clr Calc Pharmacy 104.3906; Glomerular Filtration Rate 79.4 mL/min (90-130); Glucose 65 mg/dL (65-115); Osmolality Calculated 292 mOsm/kg (285-295); Sodium 143 mmol/L (136-145); Total Bilirubin 0.3 mg/dL (0.15-1.2); Total Protein 5.6 g/dL (6.6-8.7)
[2025-01-03 07:59] VITALS: BP 97/61; PULSE 74; RESP 16; TEMP 36.9; O2SAT 97
[2025-01-03] MEDS: levETIRAcetam 500 MG/100 ML PREMIX 400 MG IV (09:17)
--- NOTE | 2025-01-03 09:21 | P.CONIM_ITS ---
Providers/Reason For Consult 2 Consulting Physician/Specialty*: General surgery Reason for Consult*: Rule out acute appendicitis Attending Physician: Corry Calderon MD Primary Care Provider: Roberto Donaldson History of Present Illness History of Present Illness Lizzeth Toscano is a 39 year old female who was admitted 2 days ago after 2 seizures. She was initially thought to have meningitis underwent lumbar puncture her mental status has improved on she has been cleared from that standpoint. Yesterday she was noted to have abdominal upset characterized by bloating and gurgling, CT scan of the abdomen and pelvis was obtained showing evidence of some periappendiceal fluid and pelvic fluid but normal appendix there is also an incidental finding of dilation of the biliary tract with normal LFTs. I was consulted for these findings. Review of Systems 2 General: Reports: 10 or more systems reviewed and unremarkable except in HPI and below Medications/Allergies Home Medications ?Medication ?Instructions ?Recorded ?Confirmed ?Last Taken ?Type Dessicated Beef organs 1 cap PO DAILY 08/26/2411/26 Unknown History ferrous sulfate 324 mg (65 mg 324 mg PO DAILY #30 tabs 08/28/24 01/01/25 Unknown Rx iron) tablet,delayed release venlafaxine 75 mg capsule,extended 75 mg PO QAM #30 ca ps 12/02/24 01/01/25 Unknown Rx release 24 hr Allergies Allergy/AdvReac Type Severity Reaction Status Date / Time gabapentin Allergy Intermediate ADR-Dizzine Verified 01/01/25 08:23 ss rizatriptan (From Maxalt) Allergy Mild Unknown Verified 01/01/25 08:23 Current Medications Generic Name Dose Route Start Last Admin Trade Name Freq PRN Reason Stop Dose Admin Docusate Sodium 200 mg 01/01/25 09:00 01/03/25 09:16 Docusate Sodium 100 Mg Capsule PO Not Given DAILY IVANA Enoxaparin Sodium 40 mg 01/01/25 21:00 01/02/25 21:16 Enoxaparin 40 Mg/0.4 Ml Syringe SUBCUT 40 mg Q24H IVANA Administration Levetiracetam 500 mg in 100 mls @ 400 mls/hr 01/01/25 09:00 01/03/25 09:17 Keppra IV 400 mls/hr Q12H IVANA Administration Piperacillin Sod/Tazobactam 50 mls @ 12.5 mls/hr 01/01/25 06:15 01/03/25 06:11 Sod 4.5 gm/ Sodium Chloride IV 12.5 mls/hr Q8H IVANA Administration Protocol Sodium Chloride 1,000 mls @ 75 mls/hr 01/02/25 14:30 01/03/25 04:23 Sodium Chloride 0.9% IV 75 mls/hr .[id number] IVANA Administration Ondansetron HCl 4 mg 01/01/25 05:44 01/02/25 10:01 Ondansetron 2 Mg/Ml Sdv 2 Ml IVP 4 mg Q6H PRN Administration NAUSEA AND VOMITING Pantoprazole Sodium 40 mg 01/01/25 06:00 01/03/25 06:11 Pantoprazole 40 Mg Sdv IVP 40 mg QAM IVANA Administration Senna 17.2 mg 01/01/25 09:00 01/03/25 09:17 Sennosides 8.6 Mg Tablet PO Not Given DAILY IVANA Venlafaxine HCl 75 mg 01/02/25 14:30 01/03/25 06:11 Venlafaxine Er (24hr) 75 Mg Capsule PO 75 mg QAM IVANA Administration PFSH Acute 2 PFSH: Medical History Iron deficiency anemia Palpitation Lumbar disc disease Herpes simplex type 2 Mild intermittent asthma in childhood IBS (irritable bowel syndrome) diagnosed by GI. hx of colonoscopy. Raynauds disease Calcium kidney stones Adenomyosis Endometriosis Ovarian cyst ADHD Major depression Generalized anxiety disorder Surgical History Hx of wisdom tooth extraction Hx of cholecystectomy History of salivary gland disease had a stone and then had gland removal History of removal of ovarian cyst X3 Family History Other Anesthesia complication Autoimmune disease CAD (coronary artery disease) Cancer Diabetes mellitus type 1 Heart disease Hypertension Prostate cancer Skin cancer Stroke Ulcerative colitis Social History Smoking and tobacco/nicotine status: current every day tobacco/nicotine user (vapes) Alcohol intake: current Alcohol intake frequency: holidays/special occasions only Substance/Drug Use: current Other substance/drug use details: pen-helps with anxiety, once/week Vitals/I&O/Wt Last Vital Signs Temp 98.4 F 01/03/25 07:59 Pulse 74 01/03/25 07:59 Resp 16 01/03/25 07:59 BP 97/61 01/03/25 07:59 Pulse Ox 97 01/03/25 07:59 O2 Del Method Room Air 01/03/25 07:59 O2 Flow Rate 2 01/01/25 18:48 FiO2 30 01/01/25 13:25 01/02/25 01/03/25 01/03/25 22:59 06:59 14:59 Intake Total 250 / 920.25 1028.75 / 1949.00 0 / 0 Balance 250 / 920.25 1028.75 / 1949.00 0 / 0 Weight last 48 hrs Weight 178 lb 9.191 oz Weight 178 lb 9.191 oz Physical Exam 2 Narrative: General : Patient is well developed , no acute distress, oriented x3 Head : Normal cephalic, a-traumatic. Nose : Mucous membranes are without erythema. Lungs : Equal chest rise bilaterally, no use of accessory muscles, trachea is midline. CV : Rate and rhythm are normal. Abdomen : Soft, ND, NT, no g/r/m, there is no peritoneal signs, there is no tenderness to deep palpation in the right lower quadrant. Extremities : No edema. Upper extremities are normal bilaterally. Back : non-tender to palpation, no CVA tenderness. Urinary Catheter Management: Grey: Cath Placed During This Visit: yes, but has since been removed by the nurse Reason for Continuing Indwelling Catheter: Decision to DC Catheter Urinary Catheter Date of Insertion: 01/01/25 Date Urinary Catheter Removed: 01/02/25 Time Urinary Catheter Discontinued: 18:12 Data 01/03/25 05:21 01/03/25 05:21 Micro: Microbiology 01/02/25 11:07 Gram Stain - Final Cerebrospinal Fluid Cryptococcal Antigen (CSF) - Final 01/01/25 05:04 Blood Culture - Preliminary Blood NEGATIVE TO DATE 01/01/25 04:50 Blood Culture - Preliminary Blood NEGATIVE TO DATE A&P Assessment and plan (1) Abdominal pain: Plan After a complete history, physical examination and review of all available clinical data the following is my assessment. This is a 39-year-old female with abdominal discomfort and a CT scan that shows some pelvic fluid and some peritoneal fluid I was consulted to rule out acute appendicitis. She is doing better this morning, her white count is normal, she does not have any abnormal vital signs, endorses abdominal gurgling and excessive gas but no significant abdominal pain. The examination of the abdomen is completely benign. According to the patient she just finished her. And has history of endometriosis. This will likely support the finding of [address] in the CT scan of the abdomen. CT scan is otherwise unremarkable and appendix looks normal. Without evidence of clinical exam consistent with appendicitis I do not think is required to do any kind of additional surgical intervention. I will recommend that she is taking a week of antibiotics. Some of her symptoms can also be related to her recent lumbar puncture as well as current IV antibiotics. She has been educated about this. I also informed the patient that there is dilation of her biliary tract, this often seen after cholecystectomy but due to the degree of dilation an outpatient MRCP should be considered to rule out any additional pathology. She is cleared to be advancing diet as tolerated and I will remain available as needed. PDMP PDMP Reviewed: Not Reviewed Coding Level of Care Code Acute Code for Chg Fwd Diagnoses Abdominal pain R10.9
[2025-01-03 11:38] VITALS: BP 115/73; PULSE 62; RESP 17; TEMP 37.1; O2SAT 97
[2025-01-03] MEDS: lidocaine 1% 5 ML in potassium chloride premix 100 ML 26.25 ML IV (12:01)
[2025-01-03] MEDS: ondansetron 4 MG Tablet PO (12:51)
[2025-01-03 14:50] VITALS: BP 115/73; PULSE 62; RESP 17; TEMP 37.1; O2SAT 97
--- NOTE | 2025-01-03 18:35 | P.DS_ITS ---
Discharge Providers Date of Admission: 01/01/25 02:09 Date of Discharge: January 03, 2025 Attending Provider at Admission: Elise Likn MD Attending Provider at Discharge: Corry Calderon MD Primary Care Provider: Roberto Donaldson Diagnoses at Discharge Discharge Diagnosis (1) Abdominal pain: Status: Acute (2) New onset seizure: Status: Acute (3) Acute respiratory failure with hypoxia and hypercapnia: Status: Acute (4) Appendicitis: Status: Acute Reason for Visit Reason for Visit: SEIZURES Brief History: Lizzeth Toscano is a 39 year old female w/ IBS, ADHD, Generalized Anxiety d/o, MDD, Endometriosis, Adenomyosis, Raynaud's disease and who was brought to the ED in the director talent acquisition hours of 01/01/2025, via EMS for new onset seizures. She needed to be intubated due to noted hypoxic hypercapneic respiratory failure noted on admission. She was able to be extubated the next day on 01/01. She was started on Keppra for new seizures and remained seziure free during her hospital stay. Post extubation her mental status remained adequate, AAO x4 , no focal deficits on exam. MRi did not show any acute intracranial abnormalities or mass lesions. LP performed on 01/02 showed CSF cell count of 3, glucose 57, total protein of 15, overall picture not concerning for meningitis. She had been reciving zosyn and vancomycin , of which vancomycin was discontinued after LP on 01/02. hospital course was complicated by persistent leukocytosis and soft blood pressure. She c/o abdominal pain and vomiting and had mild tenderness in the RLQ. CT abdomen was perfromed which raised suspicion for mild acute appendicitis. Alternate differential clinically that of enodmetriosis related pain as patient had recently completed her period. She received IVF and iv abx and was much improved ond ay of discharge. Surgery service was consulted, no surgical intervention was indicated. She was toleratimg a mechanical soft diet and oral medications. She was discharged with oral ciprofloxacin and oral metronidazole with recommendation to follow up with neurology and gen surg as outpatient. Physical Exam Narrative: General: No acute distress, AO x3 HEENT: PERRLA, pupils bilaterally equal and reactive, pallors not present Chest: Normal vesicular breath sounds, no added sounds, equal good air entry bilaterally CVS: S1-S2 regular, no murmurs, no tachycardia, no gallops, no rubs Abdomen: Soft, nontender, no organomegaly, bowel sounds present Neuro: No focal deficits, no facial deformity, AO x3, power 5/5 in all limbs Urinary Catheter Management: Grey: Cath Placed During This Visit: yes, but has since been removed by the nurse Reason for Continuing Indwelling Catheter: Decision to DC Catheter Urinary Catheter Date of Insertion: 01/01/25 Date Urinary Catheter Removed: 01/02/25 Time Urinary Catheter Discontinued: 18:12 Discharge Data Studies Completed and Pending Completed Studies During Hospitalization Category Date Time Status CT abdomen pelvis w con* [id number] Routine Cat Scan 01/02/25 14:[address] head w con [id number] Stat Cat Scan 01/01/25 01:[address] head wo con* [id number] Stat Cat Scan 12/31/24 23:47 Completed FL guided lumbarpunc dx* [id number] Routine Exams 01/02/25 11:03 Completed XR chest 1V portable [id number] Stat Exams 12/31/24 23:48 Completed MR head wo/w con [id number] Routine MRI 01/01/25 12:05 Completed Radiology Impressions Chest X-Ray 12/31/24 23:48 IMPRESSION: 1. No acute infarct or hemorrhage. 2. No mass lesion. IMPRESSION: 1. Nasogastric/orogastric tube is in good position. 2. Endotracheal tube is in good position. 3. No acute disease. Head CT 01/01/25 01:33 IMPRESSION: 1. No acute infarct or hemorrhage. 2. No mass lesion. IMPRESSION: 1. Nasogastric/orogastric tube is in good position. 2. Endotracheal tube is in good position. 3. No acute disease. Head MRI 01/01/25 12:05 IMPRESSION: No acute findings. Lumbar Puncture Fluoroscopy 01/02/25 11:03 IMPRESSION: Fluoroscopically guided lumbar puncture. No immediate complications Abdomen/Pelvis CT 01/02/25 14:23 IMPRESSION: 1. Normal caliber appendix with trace periappendiceal fluid, the latter of which may be related to small volume free pelvic fluid. However, early/mild acute appendicitis is not excluded in the correct clinical setting. 2. Small volume free pelvic fluid may be physiologic or could be related to mild inflammation. 3. Moderate colorectal stool may reflect constipation. 4. Status post cholecystectomy. 5. Extrahepatic and intrahepatic biliary ductal dilatation is greater than expected for cholecystectomy changes. No abrupt cut off visualized. Nonemergent MRCP could be considered for further evaluation. Laboratory Results WBC 6.82 10^3/uL (3.29-11.43) 01/03/25 05:21 RBC 3.58 10^6/uL (3.85-5.65) L 01/03/25 05:21 Hgb 9.80 g/dL (11.27-16.99) L 01/03/25 05:21 Hct 30.4 % (36-47) L 01/03/25 05:21 MCV 84.9 fl (85-98) L 01/03/25 05:21 MCH 27.4 pg (27-33) 01/03/25 05:21 MCHC 32.2 g/dL (30-55) 01/03/25 05:21 RDW 13.0 % (12.1-15.1) 01/03/25 05:21 Plt Count 186 10^3/cmm (157-399) 01/03/25 05:21 MPV 10.5 fL (7.4-10.4) H 01/03/25 05:21 Neut % (Auto) 71.6 % 01/03/25 05:21 Lymph % (Auto) 21.0 % 01/03/25 05:21 [place] % (Auto) 6.2 % 01/03/25 05:21 Eos % (Auto) 0.1 % 01/03/25 05:21 Baso % (Auto) 0.7 % 01/03/25 05:21 Neut # (Auto) 4.88 10^3/uL (1.8-7.7) 01/03/25 05:21 Lymph # (Auto) 1.4 10^3/uL (0.8-4.8) 01/03/25 05:21 [place] # (Auto) 0.4 10^3/uL (0.2-0.9) 01/03/25 05:21 Eos # (Auto) 0.0 10^3/uL (0.0-0.8) 01/03/25 05:21 Baso # (Auto) 0.1 10^3/uL (0.0-0.1) 01/03/25 05:21 Nucleated RBC % (auto) 0 % 01/03/25 05:21 Nucleated RBCs # 0.0 /100WBC 01/03/25 05:21 PT 14.00 SECONDS (12.1-14.9) 01/01/25 00:42 INR 1.01 (0.8-1.2) 01/01/25 00:42 APTT 26.9 SECONDS (23.9-36.7) 01/01/25 00:42 Specimen Type Arterial 01/01/25 04:01 Sample Site Radial, right 01/01/25 04:01 ABG pH 7.43 (7.35-7.45) 01/01/25 04:01 ABG pCO2 32.4 mmHg (35-45) L 01/01/25 04:01 ABG pO2 167.0 mmHg (80.0-100.0) H 01/01/25 04:01 ABG PO2/FiO2 Ratio 417 01/01/25 04:01 ABG HCO3 21.5 mmol/L (22-26) L 01/01/25 04:01 ABG O2 Saturation > 99.1 01/01/25 04:01 ABG Base Excess -2.1 mmol/L (-2.0-2.0) L 01/01/25 04:01 Will Test Pos 01/01/25 04:01 A-a O2 Gradient 9.0 mmHg (5-10) 01/01/25 04:01 Hematocrit 36.6 % (37-47) L 01/01/25 04:01 Hgb O2 Saturation 98.9 % (95-100) 01/01/25 04:01 Carboxyhemoglobin 0.5 %THgb (0.4-20.1) 01/01/25 04:01 Methemoglobin 0.5 % (0.4-1.5) 01/01/25 04:01 Total Hemoglobin 11.9 g/dL (12-16) L 01/01/25 04:01 Sodium 141.0 mmol/L (131-143) 01/01/25 04:01 Potassium 3.5 mmol/L (3.5-5.0) 01/01/25 04:01 Glucose 97.0 mg/dL (70-115) 01/01/25 04:01 Ionized Calcium 1.1 mmol/L (1.1-1.4) 01/01/25 04:01 O2 Delivery Device Vent 01/01/25 04:01 O2 Liters/Min 4.0 % 12/31/24 23:53 FiO2 40.0 % 01/01/25 04:01 Tidal Volume 0.45 01/01/25 04:01 PEEP 5.0 cmH20 01/01/25 04:01 Structural [employer] Worker Apprentice ID Juan 01/01/25 04:01 Sodium 143 mmol/L (136-145) 01/03/25 05:21 Potassium 3.0 mmol/L (3.5-5.1) L 01/03/25 05:21 Chloride 110 mmol/L (98-107) H 01/03/25 05:21 Carbon Dioxide 20 mmol/L (22-29) L 01/03/25 05:21 Anion Gap 16.0 (5-19) 01/03/25 05:21 BUN 6 mg/dL (6-20) 01/03/25 05:21 Creatinine 0.8 mg/dL (0.5-0.9) 01/03/25 05:21 GFR Calculation 79.4 mL/min (90-130) L 01/03/25 05:21 Glucose 65 mg/dL (65-115) 01/03/25 05:21 POC Glucose 105 mg/dL (70-110) 01/01/25 04:37 Calculated Osmolality 292 mOsm/kg (285-295) 01/03/25 05:21 Lactic Acid 2.2 mmol/L (0.5-2.2) 01/01/25 07:37 Lactic Acid (Sepsis) 0.8 mmol/L (0.5-2.2) 01/01/25 10:51 Calcium 8.0 mg/dL (8.5-10.5) L 01/03/25 05:21 Magnesium 1.8 mg/dL (1.7-2.3) 01/03/25 05:21 Total Bilirubin 0.3 mg/dL (0.15-1.2) 01/03/25 05:21 AST 14 U/L (0-32) 01/03/25 05:21 ALT 15 U/L (0-33) 01/03/25 05:21 Alkaline Phosphatase 66 U/L (35-105) 01/03/25 05:21 Creatine Kinase 85 U/L (26-192) 01/01/25 00:42 Total Protein 5.6 g/dL (6.6-8.7) L 01/03/25 05:21 Albumin 3.6 g/dL (3.5-5.2) 01/03/25 05:21 Globulin 2.0 g/dL (1.3-4.6) 01/03/25 05:21 HCG, Qual Negative (Negative) 01/01/25 00:42 Urine Color Yellow (Yellow) 12/31/24 23:57 Urine Appearance Clear (CLEAR) 12/31/24 23:57 Urine pH 5 (5-7) 12/31/24 23:57 Ur Specific [place] 1.020 (1.005-1.030) 12/31/24 23:57 Urine Protein Trace (Negative) H 12/31/24 23:57 Urine Glucose (UA) Norm (Normal) 12/31/24 23:57 Urine Ketones 1+ (Negative) H 12/31/24 23:57 Urine Blood 2+ (Negative) A 12/31/24 23:57 Urine Nitrate Negative (Negative) 12/31/24 23:57 Urine Bilirubin Neg (Negative) 12/31/24 23:57 Urine Urobilinogen Neg mg/dL (Negative) 12/31/24 23:57 Ur Leukocyte Esterase Negative (Negative) 12/31/24 23:57 Urine RBC 0-2 /hpf (0-2) 12/31/24 23:57 Urine WBC 0-5 /hpf (0-5) 12/31/24 23:57 Ur Squamous Epith Cells 0-5 /hpf (0-5) 12/31/24 23:57 Amorphous Sediment Not Reportable 12/31/24 23:57 Urine Bacteria None seen /hpf (NONE) 12/31/24 23:57 Hyaline Casts 7.42 /lpf 12/31/24 23:57 CSF Appearance Clear (CLEAR) 01/02/25 11:07 CSF Color Colorless (COLORLESS) 01/02/25 11:07 CSF WBC 3 /uL (0-5) 01/02/25 11:07 CSF RBC 0 10^3/uL (0-0) 01/02/25 11:07 CSF Mononuclear # Auto 0.002 10^3/uL (50-90) L 01/02/25 11:07 CSF Mononuclear WBCs % 67 % (50-90) 01/02/25 11:07 CSF Polynuclear WBCs # 0.001 10^3/uL (0-10) 01/02/25 11:07 CSF Polynuclear WBCs % 33 % (0-10) H 01/02/25 11:07 CSF Diff Comment Yes 01/02/25 11:07 CSF Glucose 57 mg/dL (40-70) 01/02/25 11:07 CSF Total Protein 15 mg/dL (15-45) 01/02/25 11:07 CSF VDRL Non-reactive 01/02/25 11:07 Salicylates < 0.3 mg/dL (3-10) L 01/01/25 00:42 Urine Opiates Screen Negative ng/mL (Negative) 12/31/24 23:57 Acetaminophen < 5.0 ug/mL (10-30) L 01/01/25 00:42 Ur Barbiturates Screen Negative ng/mL (Negative) 12/31/24 23:57 Ur Phencyclidine Scrn Negative ng/mL (Negative) 12/31/24 23:57 Ur Amphetamines Screen Negative ng/mL (Negative) 12/31/24 23:57 U Benzodiazepines Scrn Negative ng/mL (Negative) 12/31/24 23:57 Urine Cocaine Screen Negative ng/mL (Negative) 12/31/24 23:57 U Marijuana (THC) Screen Positive ng/mL (Negative) H 12/31/24 23:57 Ethyl Alcohol < 10 mg/dL (0-10) 01/01/25 00:42 RPR w/Rflx to Titer Non-reactive (NON-REACTIVE) 01/03/25 05:21 T.pallidum Ab (FTA-ABS) Non-reactive 01/01/25 15:12 Adenovirus (PCR) Not detected (NOT DETECT) 01/01/25 06:15 C. pneumoniae DNA (PCR) Not detected (NOT DETECT) 01/01/25 06:15 Coronavirus 229E (PCR) Not detected (NOT DETECT) 01/01/25 06:15 Hepatitis A IgM Ab Non-reactive (Nonreactive) 01/01/25 00:42 Hep Bs Antigen Non-reactive (Nonreactive) 01/01/25 00:42 Hep Bs Antibody < 3.5 (11.5-1000) L 01/01/25 00:42 Hep B Core Total Ab Non-reactive (Nonreactive) 01/01/25 00:42 Hepatitis C Antibody Non-reactive (Nonreactive) 01/01/25 00:42 HIV 1&2 Ab & HIV 1 Ag Non-reactive (Non-Reactiv) 01/01/25 00:42 HIV 1&2 Antibody Non-reactive (Non-Reactiv) 01/01/25 00:42 Human Metapneumovir PCR Not detected (NOT DETECT) 01/01/25 06:15 Influenza A (H1) PCR Not detected (NOT DETECT) 01/01/25 06:15 Influ A (H1/09) PCR Not detected (NOT DETECT) 01/01/25 06:15 Influenza A (H3) PCR Not detected (NOT DETECT) 01/01/25 06:15 Influenza Type A (PCR) Not detected (NOT DETECT) 01/01/25 06:15 Influenza Type B (PCR) Not detected (NOT DETECT) 01/01/25 06:15 M. pneumoniae (PCR) Not detected (NOT DETECT) 01/01/25 06:15 Parainfluenza 1 (PCR) Not detected (NOT DETECT) 01/01/25 06:15 Parainfluenza 2 (PCR) Not detected (NOT DETECT) 01/01/25 06:15 Parainfluenza 3 (PCR) Not detected (NOT DETECT) 01/01/25 06:15 Parainfluenza 4 (PCR) Not detected (NOT DETECT) 01/01/25 06:15 RSV Type A (PCR) Not detected (NOT DETECT) 01/01/25 06:15 RSV Type B (PCR) Not detected (NOT DETECT) 01/01/25 06:15 Entero/Rhino (PCR) Not detected (NOT DETECT) 01/01/25 06:15 SARS-CoV-2 (PCR) Not detected (NOT DETECT) 01/01/25 06:15 Vitals Last Vital Signs Temp 98.7 F 01/03/25 14:50 Pulse 62 01/03/25 14:50 Resp 17 01/03/25 14:50 BP 115/73 04/04/25 14:50 Pulse Ox 97 01/03/25 14:50 O2 Del Method Room Air 01/03/25 11:38 O2 Flow Rate 2 01/01/25 18:48 FiO2 30 01/01/25 13:25 Discharge Plan Discharge Patient Disposition: Home Condition: Stable Prescriptions: New levetiracetam [Keppra] 500 mg tablet 500 mg PO BID 30 Days Qty: 60 0RF ciprofloxacin HCl 500 mg tablet 500 mg PO BID 7 Days Qty: 14 0RF metronidazole 500 mg tablet 500 mg PO Q8H 7 Days Qty: 21 0RF Continued venlafaxine 75 mg capsule,extended release 24hr 75 mg PO QAM Qty: 30 3RF No Action ondansetron 4 mg tablet,disintegrating 4 mg PO Q6H PRN (Reason: nausea and vomiting) Qty: 14 0RF Discharge Orders: Discharge Order (Routine); Ordered 01/03/25 Ordered By: Corry Calderon Referrals: Roland Claire MD [Physician] - 01/13/25 11:20 am Lam Durán MD [Physician] - 01/14/25 11:30 am Roberto Donaldson NP [Primary Care Provider] - (We have notified your physician's clinic of the need for a follow-up appointment to be scheduled. If you have not heard from them within the next 2 business days, please call them directly. ) Discharge Diet: Usual diet Discharge Activity: Resume usual activity Patient Instructions: Ciprofloxacin (By mouth), Metronidazole (By mouth), Levetiracetam (By mouth), Epilepsy (DC), New-Onset Seizure in Adults (ED), Acute Respiratory Failure (GEN), Opioid Safety Discharge Attestations Time Spent in Discharge Care*: greater than 30 min Quality Metrics Clinical Quality Measures [ No reported AMI, CVA or VTE this stay] Coding Level of Care Code Acute Code for Chg Fwd Diagnoses Abdominal pain R10.9 New onset seizure R56.9 Acute respiratory failure with hypoxia and hypercapnia J96.01; J96.02 Appendicitis K37
--- NOTE | 2025-01-06 09:22 | PC.NURSE ---
scheduled hospital f/u appointment with pcp clinic for 01/08 @ 1020. script writer called patient and made her aware of appointment.
[2025-01-06 10:35] LABS: RPR w(Moniotor) w/REFL Titer NON-REACTIVE (NON-REACTIVE)
[2025-01-08 00:50] LABS: VDRL on CSF NON-REACTIVE
[2025-01-08 02:39] LABS: Treponema pallidum Ab NON-REACTIVE
== END 2025-01-03 14:52 | disposition home or self-care (01) | DRG 100 ==
LOC: ER 01-01 02:13 → ICU 01-01 02:15 → MEDSURG 01-02 18:25
PROVIDERS: Student in an Organized Health Care Education/Training Program; Admitting Provider Internal Medicine; Emergency Provider Emergency Medicine; PCP Clinical Nurse Specialist Adult Health; Visit Provider Student in an Organized Health Care Education/Training Program
DX: G40.401 Other generalized epilepsy and epileptic syndromes, not intractable, with status epilepticus (principal); J96.01 Acute respiratory failure with hypoxia; J96.02 Acute respiratory failure with hypercapnia; K35.80 Unspecified acute appendicitis; E87.20 Acidosis, unspecified; F32.9 Major depressive disorder, single episode, unspecified; F90.9 Attention-deficit hyperactivity disorder, unspecified type; J45.20 Mild intermittent asthma, uncomplicated; F17.290 Nicotine dependence, other tobacco product, uncomplicated; F41.1 Generalized anxiety disorder; I73.00 Raynaud's syndrome without gangrene; D50.9 Iron deficiency anemia, unspecified; K58.9 Irritable bowel syndrome, unspecified; N80.9 Endometriosis, unspecified; N80.03 Adenomyosis of the uterus; F12.90 Cannabis use, unspecified, uncomplicated; Z11.52 Encounter for screening for COVID-19; Z79.899 Other long term (current) drug therapy; Z79.52 Long term (current) use of systemic steroids; Z88.8 Allergy status to other drugs, medicaments and biological substances
CPT/HCPCS: 36415; 36416; 36600; 51702; 62328; 70450; 70460; 70553; 71045; 74177; 80051; 80053; 80306; 80307; 80503; 81001; 82330; 82550; 82805; 82945; 82962; 83605; 83735; 84157; 84703; 85025; 85610; 85730; 86592; 86705; 86706; 86709; 86780; 86803; 87040; 87070; 87075; 87205; 87327; 87340; 87486; 87581; 87633; 87806; 89050; 93005; 94002; 94003; 94799; 96365; 96366; 96372; 96375; 99285; J0330; J1100; J1650; J1953; J2250; J2405; J2470; J2543; J2704; J3010; J3370; J3372; J3480; J3490; J7030; J7050; J9999; Q0162

== ENCOUNTER 2025-01-08 09:57 | Emergency (ER) | payer MEDICAID, SELFPAY ==
[2025-01-08 10:19] VITALS: BP 120/78; PULSE 90; RESP 18; TEMP 36.7; O2SAT 98; BMI 29.0
--- NOTE | 2025-01-08 10:38 | W.ED.NAVMDI ---
HPI - Nausea/Vomiting/Diarrhea General: Chief complaint: Nausea/Vomiting/Diarrhea Stated complaint: n/v, shaking Time Seen by Provider: 01/08/25 10:35 Source: patient Mode of arrival: ambulatory Limitations: no limitations History of Present Illness: 39-year-old female who was recently admitted here with new onset seizures she has been on Keppra she states that since she was discharged 5 days ago she has not been feeling well and just feeling weak. States she woke this morning had 2 episodes of vomiting she had vomited her meds up. She states she has been feeling shaky and having abdominal cramping since the vomiting she denies any diarrhea denies any fevers she denies any worsening improving factors. Related Data Previous Rx's ?Medication ?Instructions ?Recorded venlafaxine 75 mg capsule,extended 75 mg PO QAM #30 caps 12/02/24 release 24 hr ciprofloxacin HCl 500 mg tablet 500 mg PO BID 7 days #14 tabs 01/03/25 levetiracetam 500 mg tablet 500 mg PO BID 30 days #60 tabs 01/03/25 (Keppra) metronidazole 500 mg tablet 500 mg PO Q8H 7 days #21 tabs 01/03/25 ondansetron 4 mg disintegrating 4 mg PO Q6H PRN nausea and 01/08/25 tablet vomiting #14 tabs Allergies Allergy/AdvReac Type Severity Reaction Status Date / Time gabapentin Allergy Intermediate ADR-Dizzine Verified 01/01/25 08:23 ss rizatriptan (From Maxalt) Allergy Mild Unknown Verified 01/01/25 08:23 [facility] ED PFSH: Medical History Iron deficiency anemia Palpitation Lumbar disc disease Herpes simplex type 2 Mild intermittent asthma in childhood IBS (irritable bowel syndrome) diagnosed by GI. hx of colonoscopy. Raynauds disease Calcium kidney stones Adenomyosis Endometriosis Ovarian cyst ADHD Major depression Generalized anxiety disorder Surgical History Hx of wisdom tooth extraction Hx of cholecystectomy History of salivary gland disease had a stone and then had gland removal History of removal of ovarian cyst X3 Family History Other Anesthesia complication Autoimmune disease CAD (coronary artery disease) Cancer Diabetes mellitus type 1 Heart disease Hypertension Prostate cancer Skin cancer Stroke Ulcerative colitis Social History Smoking and tobacco/nicotine status: current every day tobacco/nicotine user (vapes) Alcohol intake: current Alcohol intake frequency: holidays/special occasions only Substance/Drug Use: current Other substance/drug use details: pen-helps with anxiety, once/week Female Reproductive History: Date of last menstrual period: 12/31/24 Physical Exam Const: COMMON NORMALS: no acute distress, patient oriented x3 and healthy appearing HENMT: COMMON NORMALS: normocephalic and atraumatic HEAD & SCALP: normocephalic and atraumatic Eye: COMMON NORMALS: conjunctivae normal CONJUNCTIVA: Yes conjunctivae normal Neck/C-Spine: COMMON NORMALS: full ROM and supple Chest: COMMONS NORMALS: normal inspection of the chest and normal palpation of entire chest wall Resp: COMMON NORMALS: normal respiratory effort, No retractions, No use of accessory muscles and clear to auscultation bilaterally AUSCULTATION: clear to auscultation bilaterally Cardio: COMMON NORMALS: regular rate, regular rhythm and No murmurs present (Cardio) RATE: regular rate RHYTHM: regular rhythm GI: COMMON NORMALS: Normal to inspection, nondistended, normoactive bowel sounds present, Soft to palpation, non-tender and no masses PALPATION: Yes Soft to palpation Extremity: COMMON NORMALS: normal to inspection and full ROM Neuro: COMMON NORMALS: patient oriented x3, moves all extremities and no focal motor deficits Psych: COMMON NORMALS: mental status grossly normal, Normal thought process present and cooperative THOUGHT PROCESS: Normal thought process present Skin: COMMON NORMALS: no rashes or lesions noted and no wounds GENERAL SKIN EXAM: no rashes or lesions noted Course Vital Signs: Vital signs: Vital Signs Temperature 98.1 F 01/08/25 10:19 Pulse Rate 90 01/08/25 10:19 Respiratory Rate 18 01/08/25 10:19 Blood Pressure 120/78 01/08/25 10:19 Pulse Oximetry 98 01/08/25 10:19 Oxygen Delivery Me thod Room Air 01/08/25 10:19 MDM - Nausea/Vomiting/Diarrhea Medical Decision Making Patient presents with vomiting is much improved here after IV fluids and Zofran she feels much improved abdominal exam is benign blood work here is normal we will prescribe her Zofran she is stable for discharge follow-up with PCP return if worsening. Medical Records I reviewed the patient's medical records. Lab Data I reviewed the patient's lab results. 01/08/25 10:35 01/08/25 10:35 Laboratory Results WBC 5.72 10^3/uL (3.29-11.43) 01/08/25 10:35 RBC 4.87 10^6/uL (3.85-5.65) 01/08/25 10:35 Hgb 13.60 g/dL (11.27-16.99) 01/08/25 10:35 Hct 41.2 % (36-47) 01/08/25 10:35 MCV 84.6 fl (85-98) L 01/08/25 10:35 MCH 27.9 pg (27-33) 01/08/25 10:35 MCHC 33.0 g/dL (30-55) 01/08/25 10:35 RDW 13.0 % (12.1-15.1) 01/08/25 10:35 Plt Count 270 10^3/cmm (157-399) 01/08/25 10:35 MPV 9.9 fL (7.4-10.4) 01/08/25 10:35 Neut % (Auto) 74.0 % 01/08/25 10:35 Lymph % (Auto) 15.2 % 01/08/25 10:35 [place] % (Auto) 8.0 % 01/08/25 10:35 Eos % (Auto) 1.6 % 01/08/25 10:35 Baso % (Auto) 0.9 % 01/08/25 10:35 Neut # (Auto) 4.23 10^3/uL (1.8-7.7) 01/08/25 10:35 Lymph # (Auto) 0.9 10^3/uL (0.8-4.8) 01/08/25 10:35 [place] # (Auto) 0.5 10^3/uL (0.2-0.9) 01/08/25 10:35 Eos # (Auto) 0.1 10^3/uL (0.0-0.8) 01/08/25 10:35 Baso # (Auto) 0.1 10^3/uL (0.0-0.1) 01/08/25 10:35 Nucleated RBC % (auto) 0 % 01/08/25 10:35 Nucleated RBCs # 0.0 /100WBC 01/08/25 10:35 Sodium 142 mmol/L (136-145) 01/08/25 10:35 Potassium 3.8 mmol/L (3.5-5.1) 01/08/25 10:35 Chloride 107 mmol/L (98-107) 01/08/25 10:35 Carbon Dioxide 24 mmol/L (22-29) 01/08/25 10:35 Anion Gap 14.8 (5-19) 01/08/25 10:35 BUN 13 mg/dL (6-20) 01/08/25 10:35 Creatinine 0.6 mg/dL (0.5-0.9) 01/08/25 10:35 GFR Calculation 110.7 mL/min (90-130) 01/08/25 10:35 Glucose 102 mg/dL (65-115) 01/08/25 10:35 Calculated Osmolality 294 mOsm/kg (285-295) 01/08/25 10:35 Calcium 9.1 mg/dL (8.5-10.5) 01/08/25 10:35 Total Bilirubin 0.3 mg/dL (0.15-1.2) 01/08/25 10:35 AST 106 U/L (0-32) H 01/08/25 10:35 ALT 85 U/L (0-33) H 01/08/25 10:35 Alkaline Phosphatase 72 U/L (35-105) 01/08/25 10:35 Total Protein 6.9 g/dL (6.6-8.7) 01/08/25 10:35 Albumin 4.1 g/dL (3.5-5.2) 01/08/25 10:35 Globulin 2.8 g/dL (1.3-4.6) 01/08/25 10:35 Lipase 41 U/L (13-60) 01/08/25 10:35 HCG, Qual Negative (Negative) 01/08/25 10:35 Urine RBC 11-20 /hpf (0-2) H 01/08/25 11:25 Urine WBC 0-5 /hpf (0-5) 01/08/25 11:25 Ur Squamous Epith Cells 11-20 /hpf (0-5) H 01/08/25 11:25 Amorphous Sediment Not Reportable 01/08/25 11:25 Urine Bacteria 1+ /hpf (NONE) H 01/08/25 11:25 Hyaline Casts 0-4 /lpf H 01/08/25 11:25 No radiology studies performed this visit Discharge Plan Discharge Patient Disposition: Home Clinical Impression: Vomiting Condition: Stable Prescriptions: New ondansetron 4 mg tablet,disintegrating 4 mg PO Q6H PRN (Reason: nausea and vomiting) Qty: 14 0RF No Action venlafaxine 75 mg capsule,extended release 24hr 75 mg PO QAM Qty: 30 3RF levetiracetam [Keppra] 500 mg tablet 500 mg PO BID 30 Days Qty: 60 0RF ciprofloxacin HCl 500 mg tablet 500 mg PO BID 7 Days Qty: 14 0RF metronidazole 500 mg tablet 500 mg PO Q8H 7 Days Qty: 21 0RF Discharge Orders: Discharge ED (Routine); Ordered 01/08/25 Ordered By: Kira Summers Referrals: Roberto Donaldson, CIRCUIT BREAKER MECHANIC [Primary Care Provider] - Discharge Diet: Advance as tolerated Discharge Activity: Resume usual activity Patient Instructions: Acute Nausea and Vomiting (ED) Print Language: Tristanian Coding 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
[2025-01-08 10:46] LABS: Basophils # 0.1 10^3/uL (0.0-0.1); Basophils % 0.9 %; Eosinophils # 0.1 10^3/uL (0.0-0.8); Eosinophils % 1.6 %; Hematocrit 41.2 % (36-47); Lymphocytes # 0.9 10^3/uL (0.8-4.8); Lymphocytes % 15.2 %; Mean Corpuscular Hemoglobin 27.9 pg (27-33); Mean Corpuscular Volume 84.6 fl (85-98); Mean Platelet Volume 9.9 fL (7.4-10.4); Monocytes # 0.5 10^3/uL (0.2-0.9); Neutrophils # 4.23 10^3/uL (1.8-7.7); Nucleated Red Blood Cells % 0 %; Platelet Count 270 10^3/cmm (157-399); Red Blood Count 4.87 10^6/uL (3.85-5.65); White Blood Count 5.72 10^3/uL (3.29-11.43)
[2025-01-08] MEDS: ondansetron 2 mg/ML SDV 2 mL 4 MG IVP (10:56)
[2025-01-08] MEDS: sodium chloride 0.9% 1,000 ML 999 ML IV (10:56)
[2025-01-08 11:01] LABS: HCG, Serum Qual Negative (Negative)
[2025-01-08 11:05] LABS: Alanine Aminotransferase 85 U/L (0-33); Albumin Level 4.1 g/dL (3.5-5.2); Alkaline Phosphatase 72 U/L (35-105); Anion Gap 14.8 (5-19); Aspartate Amino Transferase 106 U/L (0-32); Blood Urea Nitrogen 13 mg/dL (6-20); Calcium 9.1 mg/dL (8.5-10.5); Carbon Dioxide 24 mmol/L (22-29); Chloride 107 mmol/L (98-107); Creatinine Clr Calc Pharmacy 134.2662; Globulin 2.8 g/dL (1.3-4.6); Glomerular Filtration Rate 110.7 mL/min (90-130); Glucose 102 mg/dL (65-115); Lipase 41 U/L (13-60); Osmolality Calculated 294 mOsm/kg (285-295); Potassium 3.8 mmol/L (3.5-5.1); Sodium 142 mmol/L (136-145); Total Bilirubin 0.3 mg/dL (0.15-1.2); Total Protein 6.9 g/dL (6.6-8.7)
[2025-01-08 11:36] LABS: Bacteria Urine 1+ /hpf; Hyaline Casts Urine 0-4 /lpf; WBC Urine 0-5 /hpf (0-5)
[2025-01-08 11:46] VITALS: BP 101/62; PULSE 70; O2SAT 98
[2025-01-08 11:47] LABS: Add Urine Culture? No; Add Urine Microscopic? YES; Bilirubin Urine Neg (Negative); Blood Urine Neg (Negative); Glucose Urine UA Norm (Normal); Ketones Urine Negative (Negative); Leukocyte Esterase Urine Trace (Negative); Nitrate Urine Negative (Negative); Protein Urine Neg (Negative); Specific Gravity, Urine 1.015 (1.005-1.030); Urine Appearance Slightly Cloudy (CLEAR); Urine Color Yellow (Yellow); Urobilinogen Urine Norm (Negative); pH Urine 9 (5-7)
== END 2025-01-08 11:47 | disposition home or self-care (01) ==
PROVIDERS: Emergency Provider Emergency Medicine; PCP Clinical Nurse Specialist Adult Health
DX: R11.10 Vomiting, unspecified (principal); F17.290 Nicotine dependence, other tobacco product, uncomplicated
CPT/HCPCS: 36415; 80053; 81001; 83690; 84703; 85025; 96360; 99284; J2405; J7030

== ENCOUNTER 2025-01-17 07:29 | Outpatient (CLI) | payer MEDICAID, SELFPAY ==
--- NOTE | 2025-01-17 08:15 | MR_ITS ---
WS: [id number] MRA HEAD TECHNIQUE: Axial 3-D TOF images obtained with axial images and axial, sagittal, and coronal 2-D reformatted images. CLINICAL INFORMATION: I72.9 - Aneurysm of unspecified site COMPARISON: None. FINDINGS: Some images degraded by motion artifact. Distal vertebral arteries are patent. Basilar artery is patent. Normal vascularity to the TENDER LABOR territories bilaterally. Both ICAs are patent at the skull base. Normal vascularity to the [place]OUGLAS and MCA territories bilaterally. No evidence of proximal flow-limiting stenosis. No visualized aneurysm. MR/MR angio head con [id number] IMPRESSION: 1. Normal intracranial MRA.
== END 2025-01-17 07:30 | disposition home or self-care (01) ==
PROVIDERS: PCP Clinical Nurse Specialist Adult Health; Visit Provider Psychiatry & Neurology Neurology
DX: I72.9 Aneurysm of unspecified site (principal)
CPT/HCPCS: 70544

== ENCOUNTER → 2025-01-20 09:00 | Outpatient (BNVA) | payer MEDICAID, SELFPAY | PROVIDERS: PCP Clinical Nurse Specialist Adult Health; Visit Provider Clinical Nurse Specialist Adult Health | DX: Z79.899 Other long term (current) drug therapy (principal); E55.9 Vitamin D deficiency, unspecified; R56.9 Unspecified convulsions; R10.12 Left upper quadrant pain | CPT/HCPCS: 80177; 82306; 83735 ==

== ENCOUNTER 2025-01-27 13:08 | Emergency (ER) | payer MEDICAID, SELFPAY ==
[2025-01-27 13:23] VITALS: BP 96/68; PULSE 93; RESP 18; TEMP 36.6; O2SAT 99; BMI 27.4
--- NOTE | 2025-01-27 14:20 | XRR_ITS ---
PROCEDURE INFORMATION: Exam: XR Chest Exam date and time: 01/27/2025 3:14 PM Age: 39 years old Clinical indication: Other: Weakness TECHNIQUE: Imaging protocol: Radiologic exam of the chest. Views: 1 view. COMPARISON: CR (CHEST, ) 12/31/2024 11:58 PM FINDINGS: Lungs: Calcified granulomas at the left lung base. Otherwise clear lungs. Pleural spaces: Unremarkable. No pleural effusion. No pneumothorax. Heart/Mediastinum: Unremarkable. No cardiomegaly. Bones/joints: Unremarkable. XR/XR chest 1V portable [id number] IMPRESSION: No acute cardiopulmonary process.
--- NOTE | 2025-01-27 14:20 | CT_ITS ---
WS: [id number] CT HEAD NONCONTRAST HISTORY: Encephalopathy, altered mental status TECHNIQUE: Contiguous axial imaging performed through the brain. Bone and soft tissue windows. Sagittal and coronal reformats reviewed. All CT scans at [facility] use at least one of these dose optimization techniques: automated exposure control; mA and/or kV adjustment per patient size (includes targeted exams where dose is matched to clinical indication); or iterative reconstruction. DLP: 1027.28 mGy.cm COMPARISON: 01/01/2025 No acute intracranial hemorrhage, midline shift or mass effect. No atrophy or prior infarcts or herniation. Ventricles: Normal size with no hydrocephalus. No inferior displacement of the cerebellar tonsils. Paranasal sinuses: As visualized are clear. Mastoid air cells: Well pneumatized. Calvarium and scalp: Skull is intact with no soft tissue edema or swelling. CT/CT head wo con* [id number] IMPRESSION: Negative head CT.
[2025-01-27 15:17] LABS: Basophils # 0.1 10^3/uL (0.0-0.1); Basophils % 1.1 %; Eosinophils # 0.1 10^3/uL (0.0-0.8); Eosinophils % 1.1 %; Hematocrit 41.3 % (36-47); Lymphocytes # 1.6 10^3/uL (0.8-4.8); Lymphocytes % 35.2 %; Mean Corpuscular HGB Conc 31.7 g/dL (30-55); Mean Corpuscular Hemoglobin 27.9 pg (27-33); Mean Corpuscular Volume 88.1 fl (85-98); Mean Platelet Volume 10.1 fL (7.4-10.4); Monocytes # 0.4 10^3/uL (0.2-0.9); Monocytes % 7.6 %; Neutrophils # 2.54 10^3/uL (1.8-7.7); Neutrophils % 54.8 %; Nucleated Red Blood Cells % 0 %; Platelet Count 267 10^3/cmm (157-399); Red Blood Count 4.69 10^6/uL (3.85-5.65); Red Cell Distribution Width 12.7 % (12.1-15.1); White Blood Count 4.63 10^3/uL (3.29-11.43)
[2025-01-27 15:43] LABS: Alanine Aminotransferase 12 U/L (0-33); Albumin Level 4.1 g/dL (3.5-5.2); Alkaline Phosphatase 71 U/L (35-105); Anion Gap 14.8 (5-19); Aspartate Amino Transferase 15 U/L (0-32); Blood Urea Nitrogen 9 mg/dL (6-20); Calcium 9.1 mg/dL (8.5-10.5); Carbon Dioxide 23 mmol/L (22-29); Chloride 106 mmol/L (98-107); Creatinine Clr Calc Pharmacy 112.0253; Globulin 2.8 g/dL (1.3-4.6); Glomerular Filtration Rate 92.7 mL/min (90-130); Glucose 85 mg/dL (65-115); Osmolality Calculated 288 mOsm/kg (285-295); Potassium 3.8 mmol/L (3.5-5.1); Sodium 140 mmol/L (136-145); Total Bilirubin 0.5 mg/dL (0.15-1.2); Total Protein 6.9 g/dL (6.6-8.7)
[2025-01-27 15:44] LABS: Lactic Sepsis W/Reflex 0.9 mmol/L (0.5-2.2)
--- NOTE | 2025-01-27 17:06 | ED_ITS ---
HPI - Neuro Symptoms/Deficit 2 General: Chief Complaint: Neuro Symptoms/Deficit Stated Complaint: stroke like symptoms Time Seen by Provider: 01/27/25 17:06 History of Present Illness: 39-year-old female with history of anemi a, IBS/irritable bowel syndrome, Raynaud's, depression and with recent diagnosis of seizures. She had been admitted after she was status epilepticus with an intubation. She was discharged and follow-up with Dr. Durán. Related Data Home Medications ?Medication ?Instructions ?Recorded ?Confirmed ibuprofen 200 mg tablet 800 mg PO Neck and back pain 01/14/25 01/27/25 lidocaine HCl 4 % topical patch 1 patch topical Neck/b ack pain 01/14/25 01/27/25 venlafaxine 75 mg capsule,extended mg PO 01/27/25 release 24 hr Previous Rx's ?Medication ?Instructions ?Recorded lorazepam 0.5 mg tablet 0.5 mg PO BID PRN anxiety #2 0 tabs 01/10/25 pantoprazole 40 mg tablet,delayed 40 mg PO BID 6 weeks #84 tabs 01/13/25 release sucralfate 1 gram tablet (Carafate) 1 g PO BID 6 weeks #84 tabs 01/13/25 ondansetron 4 mg disintegrating 4 mg PO Q6H PRN nausea and 01/20/25 tablet vomiting #30 tabs levetiracetam 500 mg 1,500 mg (3 x 500 mg) PO .QP M #90 01/21/25 tablet,extended release 24 hr tabs Allergies Allergy/AdvReac Type Severity Reaction Status Date / Time gabapentin Allergy Intermediate ADR-Dizzine Verified 01/27/25 13:36 ss rizatriptan (From Maxalt) Allergy Mild Unknown Verified 01/27/25 13:36 PFS ED 2 PFSH: Medical History Iron deficiency anemia Palpitation Lumbar disc disease Herpes simplex type 2 Mild intermittent asthma in childhood IBS (irritable bowel syndrome) diagnosed by GI. hx of colonoscopy. Raynauds disease Calcium kidney stones Adenomyosis Endometriosis Ovarian cyst ADHD Major depression Generalized anxiety disorder Surgical History Hx of wisdom tooth extraction Hx of cholecystectomy History of salivary gland disease had a stone and then had gland removal History of removal of ovarian cyst X3 Family History Other Anesthesia complication Autoimmune disease CAD (coronary artery disease) Cancer Diabetes mellitus type 1 Heart disease Hypertension Prostate cancer Skin cancer Stroke Ulcerative colitis Social History Smoking and tobacco/nicotine status: current every day tobacco/nicotine user (vapes) Alcohol intake: current Alcohol intake frequency: holidays/special occasions only Substance/Drug Use: current Other substance/drug use details: pen-helps with anxiety, once/week Female Reproductive History: Date of last menstrual period: 01/20/25 Physical Exam 2 Narrative: EXAM NARRATIVE: General: Alert, no acute distress. Skin: Warm, dry. Head: Normocephalic, atraumatic. Neck: Supple, trachea midline. Eye: Extraocular movements are intact. Ears, nose, mouth and throat: mucosa moist. Cardiovascular: Regular, Normal peripheral perfusion. Respiratory: Lungs are clear to auscultation, respirations are non-labored, breath sounds are equal, Symmetrical chest wall expansion. Gastrointestinal: Soft, Nontender, Non distended Musculoskeletal: Normal ROM, no deformity. Neurological: Alert and oriented, No focal neurological deficit observed. Psychiatric: Cooperative, patient is very anxious and tearful Course 2 Vital Signs: Vital signs: Vital Signs Temperature 97.9 F 01/27/25 13:23 Pulse Rate 91 01/27/25 18:38 Respiratory Rate 18 01/27/25 13:23 Blood Pressure 126/82 01/27/25 18:38 Pulse Oximetry 91 01/27/25 18:38 Oxygen Delivery Me thod Room Air 01/27/25 18:00 MDM - Neuro Symptoms/Deficit Medical Decision Making Medical decision making: Differential diagnosis including but not limited to and based on the above HPI, review of systems and physical exam: Patient is having neurologic symptoms and abdominal pain. Neurologic symptoms been present for several days. A CT of the head is being done to rule out stroke or head bleed. Not typical for stroke. She is also having abdominal pain that is apparently chronic but worsening. Lab work and CT were ordered to evaluate this left upper quadrant pain. Afraid this may be just related to her irritable bowel syndrome. Orders placed to evaluate differential diagnosis based on the above differential, HPI and physical exam Lab Review: Laboratory results were reviewed and interpreted by myself the emergency room physician. No leukocytosis. No anemia. No renal failure. Urinalysis is negative for infection. Drug screen is positive for benzodiazepines and marijuana. Flu COVID and RSV are negative CT of the abdomen pelvis with contrast: No acute process. This was reviewed and interpreted by myself the emergency room physician. I also reviewed the radiology report. CT head: No acute intracranial process. no intracranial hemorrhage, no evidence of infarct. no evidence of acute fracture.This was reviewed and interpreted by myself the ER physician. I reviewed the patient's medical record. Reexamination: I went back to see the patient. At this time nursing had informed her she would be going home. She was standing up and is soon as I walked in the room she began to yell at me. She said that I was gaslighting her because I had asked her if she had been following with this frequently in the past when she lived in another place. She just moved here she says. She continued to escalate and finally stormed out. I tried his best I could to explain that her CT was normal today and that her abdominal pain would need follow-up with her primary. I also tried to explain that her CT was normal and that her symptoms were not indicative of a stroke or head bleed particular given the normal head CT. Again she became quite angry and stormed out. I did manage to tell her that she needed to follow with Dr. Durán she continued to have these symptoms. That they might be related to her seizure disorder. Assessment and plan: Neurologic symptoms Abdominal pain ?IV Ativan in the emergency room - Discharged home - Discussed plan with patient. Answered any questions. - Evaluation and treatment of this problem were appropriate in the emergency setting. Lab Data 01/27/25 15:00 01/27/25 15:00 Radiology Impressions Chest X-Ray 01/27/25 14:20 IMPRESSION: No acute cardiopulmonary process. Head CT 01/27/25 14:20 IMPRESSION: Negative head CT. Abdomen/Pelvis CT 01/27/25 17:16 IMPRESSION: 1. 4.6 cm right ovarian cyst. 2. No evidence of acute abdominal or pelvic process. Laboratory Results WBC 4.63 10^3/uL (3.29-11.43) 01/27/25 15:00 RBC 4.69 10^6/uL (3.85-5.65) 01/27/25 15:00 Hgb 13.10 g/dL (11.27-16.99) 01/27/25 15:00 Hct 41.3 % (36-47) 01/27/25 15:00 MCV 88.1 fl (85-98) 01/27/25 15:00 MCH 27.9 pg (27-33) 01/27/25 15:00 MCHC 31.7 g/dL (30-55) 01/27/25 15:00 RDW 12.7 % (12.1-15.1) 01/27/25 15:00 Plt Count 267 10^3/cmm (157-399) 01/27/25 15:00 MPV 10.1 fL (7.4-10.4) 01/27/25 15:00 Neut % (Auto) 54.8 % 01/27/25 15:00 Lymph % (Auto) 35.2 % 01/27/25 15:00 [place] % (Auto) 7.6 % 01/27/25 15:00 Eos % (Auto) 1.1 % 01/27/25 15:00 Baso % (Auto) 1.1 % 01/27/25 15:00 Neut # (Auto) 2.54 10^3/uL (1.8-7.7) 01/27/25 15:00 Lymph # (Auto) 1.6 10^3/uL (0.8-4.8) 01/27/25 15:00 [place] # (Auto) 0.4 10^3/uL (0.2-0.9) 01/27/25 15:00 Eos # (Auto) 0.1 10^3/uL (0.0-0.8) 01/27/25 15:00 Baso # (Auto) 0.1 10^3/uL (0.0-0.1) 01/27/25 15:00 Nucleated RBC % (auto) 0 % 01/27/25 15:00 Nucleated RBCs # 0.0 /100WBC 01/27/25 15:00 Sodium 140 mmol/L (136-145) 01/27/25 15:00 Potassium 3.8 mmol/L (3.5-5.1) 01/27/25 15:00 Chloride 106 mmol/L (98-107) 01/27/25 15:00 Carbon Dioxide 23 mmol/L (22-29) 01/27/25 15:00 Anion Gap 14.8 (5-19) 01/27/25 15:00 BUN 9 mg/dL (6-20) 01/27/25 15:00 Creatinine 0.7 mg/dL (0.5-0.9) 01/27/25 15:00 GFR Calculation 92.7 mL/min (90-130) 01/27/25 15:00 Glucose 85 mg/dL (65-115) 01/27/25 15:00 Calculated Osmolality 288 mOsm/kg (285-295) 01/27/25 15:00 Lactic Acid 0.9 mmol/L (0.5-2.2) 01/27/25 15:00 Calcium 9.1 mg/dL (8.5-10.5) 01/27/25 15:00 Total Bilirubin 0.5 mg/dL (0.15-1.2) 01/27/25 15:00 AST 15 U/L (0-32) 01/27/25 15:00 ALT 12 U/L (0-33) 01/27/25 15:00 Alkaline Phosphatase 71 U/L (35-105) 01/27/25 15:00 Total Protein 6.9 g/dL (6.6-8.7) 01/27/25 15:00 Albumin 4.1 g/dL (3.5-5.2) 01/27/25 15:00 Globulin 2.8 g/dL (1.3-4.6) 01/27/25 15:00 HCG, Qual Negative (Negative) 01/27/25 17:08 Urine Color Yellow (Yellow) 01/27/25 17:08 Urine Appearance Clear (CLEAR) 01/27/25 17:08 Urine pH 7.0 (5-7) 01/27/25 17:08 Ur Specific [place] 1.020 (1.005-1.030) 01/27/25 17:08 Urine Protein Negative (Negative) 01/27/25 17:08 Urine Glucose (UA) Negative (Normal) 01/27/25 17:08 Urine Ketones Trace (Negative) 01/27/25 17:08 Urine Blood Trace (Negative) A 01/27/25 17:08 Urine Nitrate Negative (Negative) 01/27/25 17:08 Urine Bilirubin Negative (Negative) 01/27/25 17:08 Urine Urobilinogen 1.0 mg/dL (Negative) 01/27/25 17:08 Ur Leukocyte Esterase Trace (Negative) A 01/27/25 17:08 Urine RBC 6-10 /hpf (0-2) 01/27/25 17:08 Urine WBC 0-5 /hpf (0-5) 01/27/25 17:08 Ur Squamous Epith Cells 0-5 /hpf (0-5) 01/27/25 17:08 Amorphous Sediment Not Reportable 01/27/25 17:08 Urine Bacteria 1+ /hpf (NONE) H 01/27/25 17:08 Hyaline Casts 0-4 /lpf H 01/27/25 17:08 Urine Opiates Screen Negative ng/mL (Negative) 01/27/25 17:08 Ur Barbiturates Screen Negative ng/mL (Negative) 01/27/25 17:08 Ur Phencyclidine Scrn Negative ng/mL (Negative) 01/27/25 17:08 Ur Amphetamines Screen Negative ng/mL (Negative) 01/27/25 17:08 U Benzodiazepines Scrn Positive ng/mL (Negative) H 01/27/25 17:08 Urine Cocaine Screen Negative ng/mL (Negative) 01/27/25 17:08 U Marijuana (THC) Screen Positive ng/mL (Negative) H 01/27/25 17:08 Influenza A (PCR) Negative (Negative) 01/27/25 17:10 Influenza Type B (PCR) Negative (Negative) 01/27/25 17:10 RSV (PCR) Negative (Negative) 01/27/25 17:10 SARS-CoV-2 (PCR) Negative (Negative) 01/27/25 17:10 All radiology interpretation(s) finalized by discharge Discharge Plan Discharge Patient Disposition: Home Clinical Impression: Generalized anxiety disorder, Abdominal pain Condition: Stable Prescriptions: No Action ibuprofen 200 mg tablet 800 mg PO Patient Comments: Daily up to TID PRN typical is 800mg 1-2x daily lidocaine HCl 4 % adhesive patch,medicated 1 patch topical Patient Comments: 1 patch daily prn pantoprazole 40 mg tablet,delayed release (DR/EC) 40 mg PO BID 42 Days Qty: 84 0RF sucralfate [Carafate] 1 gram tablet 1 g PO BID 42 Days Qty: 84 0RF lorazepam 0.5 mg tablet 0.5 mg PO BID PRN (Reason: anxiety) Qty: 20 0RF ondansetron 4 mg tablet,disintegrating 4 mg PO Q6H PRN (Reason: nausea and vomiting) Qty: 30 1RF levetiracetam 500 mg tablet extended release 24 hr 1,500 mg PO .QPM Qty: 90 0RF venlafaxine 75 mg capsule,extended release 24hr PO Discharge Orders: Discharge ED (Routine); Ordered 01/27/25 Ordered By: Cher Avalos Referrals: Lam Durán MD [Physician] - 4-7 days (Please call for another appointment Dr. Fritz if neurologic symptoms persist.) Roberto Donaldson NP [Primary Care Provider] - 4-7 days (Please call for a follow-up appointment with your primary provider concerning your abdominal pain.) Discharge Diet: Usual diet Discharge Activity: Increase activity as tolerated Patient Instructions: Abdominal Pain (ED), Opioid Safety, Pain Management Activity Restrictions/Additional Instructions: Thank you for choosing [facility] for your healthcare needs today. You have been screened and evaluated and felt safe for discharge. Health conditions do change or evolve sometimes and as such it is important that you follow up with your Primary Doctor to be re checked, 3-5 days is a general good time frame for follow up. 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
[2025-01-27 17:09] VITALS: BP 105/68; PULSE 90; O2SAT 100
--- NOTE | 2025-01-27 17:16 | CTR_ITS ---
PROCEDURE INFORMATION: Exam: CT Abdomen And Pelvis With Contrast Exam date and time: 01/27/2025 5:34 PM Age: 39 years old Clinical indication: Abdominal pain; Generalized; Prior surgery; Surgery date: 6+ months; Surgery type: Gb TECHNIQUE: Imaging protocol: Computed tomography of the abdomen and pelvis with contrast. Radiation optimization: All CT scans at this facility use at least one of these dose optimization techniques: automated exposure control; mA and/or kV adjustment per patient size (includes targeted exams where dose is matched to clinical indication); or iterative reconstruction. Contrast material: OMNIPAQUE 350; Contrast volume: 100 ml; Contrast route: INTRAVENOUS (IV); COMPARISON: CT abdomen pelvis w con* [id number] 01/02/2025 5:29 PM RADIATION DOSE METRICS: Total DLP (mGy-cm): 532.72 FINDINGS: Lungs: Calcified granulomas at the left lung base. Liver: Normal. No mass. Gallbladder and biliary ducts: Status post cholecystectomy. No evidence of significant biliary obstruction. Pancreas: Normal. No ductal dilation. Spleen: Normal. No splenomegaly. Adrenal glands: Normal. No mass. Kidneys and ureters: Normal. No hydronephrosis. Stomach and bowel: Unremarkable. No obstruction. No mucosal thickening. Appendix: Normal appendix. Intraperitoneal space: Nearly resolved pelvic ascites. Vasculature: Unremarkable. No abdominal aortic aneurysm. Lymph nodes: Unremarkable. No enlarged lymph nodes. Urinary bladder: Unremarkable as visualized. Reproductive: 4.6 cm right ovarian cyst. Uterus and left adnexal region are unremarkable. Bones/joints: Unremarkable. No acute fracture. Soft tissues: Unremarkable. CT/CT abdomen pelvis w con* [id number] IMPRESSION: 1. 4.6 cm right ovarian cyst. 2. No evidence of acute abdominal or pelvic process.
[2025-01-27 17:20] LABS: Bilirubin Urine Negative (Negative); Blood Urine Trace (Negative); Glucose Urine UA Negative (Normal); Ketones Urine Trace (Negative); Leukocyte Esterase Urine Trace (Negative); Nitrate Urine Negative (Negative); Protein Urine Negative (Negative); Urine Appearance Clear (CLEAR); Urine Color Yellow (Yellow)
[2025-01-27 17:23] LABS: HCG Qualitative Urine. Negative (Negative)
[2025-01-27 17:25] LABS: Bacteria Urine 1+ /hpf; Hyaline Casts Urine 0-4 /lpf; Squamous Epithelial Cell Urine 0-5 /hpf (0-5); WBC Urine 0-5 /hpf (0-5)
[2025-01-27 17:30] LABS: Amphetamines Screen Urine Negative (Negative); Barbiturates Screen Urine Negative (Negative); Benzodiazepines Screen Urine Positive (Negative); Cocaine Screen Urine Negative (Negative); Opiate Screen Urine Negative (Negative); PCP Screen Urine Negative (Negative); THC Screen Urine Positive (Negative)
[2025-01-27 17:36] LABS: Add Urine Culture? No
[2025-01-27] MEDS: iohexol 350 mg/mL 500 mL Btl (per mL) IV (17:38)
[2025-01-27 17:58] LABS: Influenza A NEGATIVE (Negative); Influenza B NEGATIVE (Negative); Respiratory Syncytial Virus Ce NEGATIVE (Negative); SARS-CoV-2 PCR NEGATIVE (Negative)
[2025-01-27 18:00] VITALS: BP 103/70; PULSE 91; O2SAT 96
[2025-01-27] MEDS: LORazepam 2 mg/mL INJ 1 mL 1 MG IVP (18:24)
[2025-01-27 18:38] VITALS: BP 126/82; PULSE 91; O2SAT 91
== END 2025-01-27 18:42 | disposition home or self-care (01) ==
PROVIDERS: Emergency Provider Emergency Medicine; PCP Clinical Nurse Specialist Adult Health
DX: F41.1 Generalized anxiety disorder (principal); R10.9 Unspecified abdominal pain; Z11.52 Encounter for screening for COVID-19; F17.290 Nicotine dependence, other tobacco product, uncomplicated
CPT/HCPCS: 36415; 70450; 71045; 74177; 80053; 80306; 81001; 81025; 83605; 85025; 87040; 87637; 96374; 99285; J2060

== ENCOUNTER 2025-02-04 10:46 | Day surgery (SDC) | payer MEDICAID, SELFPAY ==
[2025-02-04 11:08] LABS: OR HCG Qualitative Urine Negative (Negative)
[2025-02-04] MEDS: sodium chloride 0.9% 500 ML 30 ML IV (11:21)
[2025-02-04 11:22] VITALS: BP 101/63; PULSE 94; RESP 18; TEMP 36.7; O2SAT 97
--- NOTE | 2025-02-04 11:28 | W.PM.OPSUD ---
Surgery/Procedure H&P Update DATE OF PROCEDURE: February 04, 2025 DATE H&P PERFORMED: 01/13/25 H&P UPDATE INFORMATION: I have reviewed H&P completed within last 30 days, I have examined patient prior to procedure and No changes to prior documentation PLANNED PROCEDURE: Operation Date: 02/04/25 12:30 Proposed Procedures p EGD [id number], R12(Not Applicable) - Roland Claire MD
--- NOTE | 2025-02-04 11:44 | P.ANESASSM_ITS ---
Pre-Anesthetic Assessment Height/Weight: Height 5 ft 6 in Weight 170 lb Temp Pulse Resp BP Pulse Ox O2 Del Method 98.1 F 94 18 101/63 97 Room Air 02/04/25 11:22 02/04/25 11:22 02/04/25 11:22 02/04/25 11:22 02/04/25 11:22 02/04/25 11:22 Preop Diagnosis: Bile duct issues Operation Date: 02/04/25 12:30 Proposed Procedures p EGD 19765, R12(Not Applicable) - Roland Claire MD Was Beta [place] taken within 24 hours: N/A Was Clonidine taken within 24 hours: N/A Last intake: Intake Last Liquid Date 02/03/25 Last Liquid Time 21:00 Last Solid Date 02/03/25 Last Solid Time 20:00 Social Tobacco and No alcohol Exam alert, oriented x 3, clear to auscultation bilaterally and regular rate & rhythm Airway Submandibular: within normal limits Cervical ROM: within normal limits Mallampati: Class II Dentition: full Comments: Comments: Teeth are eroded at the ends, denies any loose Anesthetic Plan ASA status: 3 Anesthesia: MAC Other: Denies any issues with anesthesia in the past NPO since yesterday Patient was admitted at the beginning of December for [place] seizures and status epilepticus. Never had seizures prior. Patient is on Keppra and Lamictal currently Current smoker Denies any cardiac issues Labs reviewed from and acceptable for procedure today EKG showing sinus bradycardia Plan for MAC anesthesia Medications/Allergies Home Medications ?Medication ?Instructions ?Recorded ?Confirmed ?Last Taken ?Type lorazepam 0.5 mg tablet 0.5 mg PO BID PRN anxiety #2 0 tabs 01/10/25 01/29/25 02/03/25 Rx pantoprazole 40 mg tablet,delayed 40 mg PO BID 6 weeks #84 tabs 01/13/25 01/29/25 02/04/25 Rx release sucralfate 1 gram tablet (Carafate) 1 g PO BID 6 weeks #84 tabs 01/13/25 01/29/25 02/03/25 Rx ibuprofen 200 mg tablet 800 mg PO TID Neck and back pain 01/14/25 01/29/25 02/03/25 History lidocaine HCl 4 % topical patch 1 patch topical DAILY Neck/back 01/14/25 01/29/25 02/03/25 History pain levetiracetam 500 mg 1,500 mg (3 x 500 mg) PO .QP M #90 01/21/25 01/29/25 02/03/25 Rx tablet,extended release 24 hr tabs lamotrigine 25 mg tablet 25 mg PO BID 7 days #14 tabs 01/29/25 02/04/25 02/04/25 Rx ondansetron 4 mg disintegrating 4 mg PO Q6H PRN nausea and 02/03/25 02/04/25 02/04/25 Rx tablet vomiting #30 tabs Allergies Allergy/AdvReac Type Severity Reaction Status Date / Time gabapentin Allergy Intermediate ADR-Dizzine Verified 01/29/25 09:38 ss rizatriptan (From [facility]) Allergy Mild Unknown Verified 01/29/25 09:38 Current Medications Generic Name Dose Route Start Last Admin Trade Name Freq PRN Reason Stop Dose Admin Sodium Chloride 500 mls @ 30 mls/hr 02/04/25 11:00 02/04/25 11:21 Sodium Chloride 0.9% IV 02/05/25 03:39 30 mls/hr .[id number] IVANA Administration PFSH Anesthesia Medical History Iron deficiency anemia Palpitation Lumbar disc disease Herpes simplex type 2 Mild intermittent asthma in childhood IBS (irritable bowel syndrome) diagnosed by GI. hx of colonoscopy. Raynauds disease Calcium kidney stones Adenomyosis Endometriosis Ovarian cyst ADHD Major depression Generalized anxiety disorder Surgical History Hx of wisdom tooth extraction Hx of cholecystectomy History of salivary gland disease had a stone and then had gland removal History of removal of ovarian cyst X3 Family History Other Anesthesia complication Autoimmune disease CAD (coronary artery disease) Cancer Diabetes mellitus type 1 Heart disease Hypertension Prostate cancer Skin cancer Stroke Ulcerative colitis Social History Smoking and tobacco/nicotine status: current every day tobacco/nicotine user (vapes) Alcohol intake: current Alcohol intake frequency: holidays/special occasions only Substance/Drug Use: current Other substance/drug use details: pen-helps with anxiety, once/week Female Reproductive History Date of last menstrual period: 01/20/25 Data Anesthesia Cardiac Studies: Cardiac Event Monitor 10/10/24
[2025-02-04 12:25] VITALS: BP 94/59; PULSE 82; RESP 18; TEMP 36.3; O2SAT 96
[2025-02-04 12:38] VITALS: BP 93/60; PULSE 74; RESP 16; O2SAT 97
--- NOTE | 2025-02-04 12:53 | ANE.PACU2 ---
Inpatient post-anesthesia follow up: Airway intact: Yes Vital signs: Temperature 97.4 F Pulse Rate 74 Respiratory Rate 16 Blood Pressure 93/60 Pulse Oximetry 97 Oxygen Delivery Me thod Room Air Oxygen Flow Rate Fraction of Inspir ed Oxygen Hydration adequate: Yes Nausea and vomiting: No Pain level: 1 Mental status: Baseline
== END 2025-02-04 12:53 | disposition home or self-care (01) ==
PROVIDERS: Student in an Organized Health Care Education/Training Program; PCP Clinical Nurse Specialist Adult Health; Visit Provider Student in an Organized Health Care Education/Training Program
PROC: 0DJ08ZZ Inspection of Upper Intestinal Tract, Via Natural or Artificial Opening Endoscopic (ICD-10-PCS; principal; 2025-02-04 12:30)
DX: K29.50 Unspecified chronic gastritis without bleeding (principal); G40.401 Other generalized epilepsy and epileptic syndromes, not intractable, with status epilepticus; F17.290 Nicotine dependence, other tobacco product, uncomplicated; Z79.899 Other long term (current) drug therapy; Z88.8 Allergy status to other drugs, medicaments and biological substances
CPT/HCPCS: 43239; 81025; 88305; 88342; J2250; J2704; J7040

== ENCOUNTER 2025-02-24 09:53 | Emergency (ER) | payer MEDICAID, SELFPAY ==
[2025-02-24 10:08] VITALS: BP 103/74; PULSE 91; TEMP 36.7; O2SAT 97; BMI 26.6
--- NOTE | 2025-02-24 10:45 | ED_ITS ---
HPI - Recheck/Abnormal Lab/Rx General: Chief Complaint: Recheck/Abnormal Lab/Rx Stated Complaint: med refill Time Seen by Provider: 02/24/25 10:38 Source: patient Mode of arrival: ambulatory Limitations: no limitations History of Present Illness: Patient is a nice 39-year-old female here stating she just needs her Lamictal doses for today. Patient states she was taking 75 mg twice daily but was rece ntly bumped up to 100 mg twice daily. She states she has a prescription waiting for her at the [facility] but they are closed due to today being . She states she just needs her morning and evening doses for today and she will fill her prescription tomorrow. complaint: medication refill request Returns today for: request for prescription Symptoms since prior visit: no new symptoms Associated symptoms: none Related Data Home Medications ?Medication ?Instructions ?Recorded ?Confirmed lidocaine HCl 4 % topical patch 1 patch topical DAILY Neck/back 01/14/25 02/21/25 pain Previous Rx's ?Medication ?Instructions ?Recorded ondansetron 4 mg disintegrating 4 mg PO Q6H PRN nausea and 02/03/25 tablet vomiting #30 tabs lamotrigine 25 mg tablet 25 mg PO BID 7 days #14 tabs 02/21/25 levetiracetam 500 mg 1,500 mg (3 x 500 mg) PO .QP M #90 02/21/25 tablet,extended release 24 hr tabs Allergies Allergy/AdvReac Type Severity Reaction Status Date / Time gabapentin Allergy Intermediate ADR-Dizzine Verified 02/24/25 10:12 ss rizatriptan (From [facility]) Allergy Mild Unknown Verified 02/24/25 10:12 Review of Systems Const: Denies: fever(s), chills, body aches, fatigue or malaise Card: Denies: chest pain Resp: Denies: dyspnea GI: Denies: vomiting or diarrhea Neuro: Denies: headache(s) Psych: Denies: hopelessness, paranoia, visual hallucinations, auditory hallucinations, suicidal ideation or homicidal ideation [facility] ED PFSH: Medical History Psychiatric care Iron deficiency anemia Palpitation Lumbar disc disease Herpes simplex type 2 Mild intermittent asthma in childhood IBS (irritable bowel syndrome) diagnosed by GI. hx of colonoscopy. Raynauds disease Calcium kidney stones Adenomyosis Endometriosis Ovarian cyst ADHD Major depression Generalized anxiety disorder Surgical History Hx of wisdom tooth extraction Hx of cholecystectomy History of salivary gland disease had a stone and then had gland removal History of removal of ovarian cyst X3 Family History Other Anesthesia complication Autoimmune disease CAD (coronary artery disease) Cancer Diabetes mellitus type 1 Heart disease Hypertension Prostate cancer Skin cancer Stroke Ulcerative colitis Social History Smoking and tobacco/nicotine status: current every day tobacco/nicotine user (vapes) Alcohol intake: current Alcohol intake frequency: holidays/special occasions only Substance/Drug Use: current Other substance/drug use details: pen-helps with anxiety, once/week Physical Exam Const: COMMON NORMALS: no acute distress, average body habitus, patient oriented x3, no limitations, healthy appearing, alert and well nourished Resp: COMMON NORMALS: normal respiratory effort and clear to auscultation bilaterally AUSCULTATION: clear to auscultation bilaterally Cardio: COMMON NORMALS: regular rate and regular rhythm RATE: regular rate RHYTHM: regular rhythm Neuro: COMMON NORMALS: patient oriented x3 SENSORIUM/ORIENTATION: Yes alert Psych: COMMON NORMALS: mental status grossly normal and speech normal ACTIVITY/MOTOR BEHAVIOR: Yes appropriate eye contact SPEECH: Yes normal speech INSIGHT: Good insight present (Psych) JUDGEMENT: Good judgement present (Psych) Course Vital Signs: Vital signs: Vital Signs Temperature 98.0 F 02/24/25 10:08 Pulse Rate 91 02/24/25 10:08 Blood Pressure 103/74 02/24/25 10:08 Pulse Oximetry 97 02/24/25 10:08 Oxygen Delivery Me thod Room Air 02/24/25 10:08 MDM - Recheck/Abnormal Lab/Rx Medical Decision Making Patient will be provided these medications for today with plan to get her prescription filled tomorrow. Medical Records I reviewed the patient's medical records. No radiology studies performed this visit Discharge Plan Discharge Patient Disposition: Home Clinical Impression: Encounter for medication administration Condition: Stable Prescriptions: No Action lidocaine HCl 4 % adhesive patch,medicated 1 patch topical DAILY Patient Comments: 1 patch daily prn ondansetron 4 mg tablet,disintegrating 4 mg PO Q6H PRN (Reason: nausea and vomiting) Qty: 30 1RF lamotrigine 25 mg tablet 25 mg PO BID 7 Days Qty: 14 0RF levetiracetam 500 mg tablet extended release 24 hr 1,500 mg PO .QPM Qty: 90 0RF Discharge Orders: Discharge ED (Routine); Ordered 02/24/25 Ordered By: Rosalie Negro Referrals: Roberto Donaldson NP [Primary Care Provider, Family Practice] Print Language: Serbian Coding Level of Care Code 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
[2025-02-24] MEDS: lamoTRIgine 100 mg Tablet PO ×2 (10:54)
== END 2025-02-24 10:55 | disposition home or self-care (01) ==
PROVIDERS: Emergency Provider Physician Assistant; PCP Clinical Nurse Specialist Adult Health
DX: Z76.0 Encounter for issue of repeat prescription (principal); Z79.899 Other long term (current) drug therapy; F17.290 Nicotine dependence, other tobacco product, uncomplicated
CPT/HCPCS: 99283; J9999

== ENCOUNTER 2025-02-25 15:27 | Outpatient (CLI) | payer MEDICAID, SELFPAY | END 2025-02-25 15:28 | disposition home or self-care (01) | LOC: SLEEP 15:28 | PROVIDERS: PCP Clinical Nurse Specialist Adult Health; Referring Provider Clinical Nurse Specialist Adult Health; Visit Provider Internal Medicine Pulmonary Disease | DX: R06.81 Apnea, not elsewhere classified (principal); R06.83 Snoring | CPT/HCPCS: G0399 ==

== ENCOUNTER → 2025-03-11 08:22 | Outpatient (BNVA) | payer MEDICAID, SELFPAY | PROVIDERS: PCP Clinical Nurse Specialist Adult Health; Visit Provider Clinical Nurse Specialist Adult Health | DX: J06.9 Acute upper respiratory infection, unspecified (principal); M79.10 Myalgia, unspecified site | CPT/HCPCS: 87880 ==

== ENCOUNTER → 2025-03-12 08:30 | Outpatient (BNVA) | payer MEDICAID, SELFPAY | PROVIDERS: PCP Clinical Nurse Specialist Adult Health; Visit Provider Clinical Nurse Specialist Adult Health | DX: M79.10 Myalgia, unspecified site (principal); G40.409 Other generalized epilepsy and epileptic syndromes, not intractable, without status epilepticus; Z79.899 Other long term (current) drug therapy | CPT/HCPCS: 80175; 80177; 86038 ==

== ENCOUNTER → 2025-04-09 17:09 | Outpatient (BNVA) | payer MEDICAID, SELFPAY | PROVIDERS: PCP Clinical Nurse Specialist Adult Health; Referring Provider Clinical Nurse Specialist Adult Health; Visit Provider Psychiatry & Neurology Neurology | DX: G40.909 Epilepsy, unspecified, not intractable, without status epilepticus (principal); G40.409 Other generalized epilepsy and epileptic syndromes, not intractable, without status epilepticus; G40.211 Localization-related (focal) (partial) symptomatic epilepsy and epileptic syndromes with complex partial seizures, intractable, with status epilepticus | CPT/HCPCS: 36415; 80175; 82306; 83735 ==

== ENCOUNTER → 2025-04-16 09:33 | Outpatient (BNVA) | payer MEDICAID, SELFPAY | PROVIDERS: PCP Clinical Nurse Specialist Adult Health; Visit Provider Psychiatry & Neurology Neurology | DX: G40.909 Epilepsy, unspecified, not intractable, without status epilepticus (principal); G40.409 Other generalized epilepsy and epileptic syndromes, not intractable, without status epilepticus | CPT/HCPCS: 80177 ==

== ENCOUNTER 2025-05-02 07:58 | Emergency (ER) | payer MEDICAID, SELFPAY ==
--- OUTSIDE RECORDS SUMMARY | 1999-10-01 19:00 | XMS_ITS | Continuity of Care Document ---
Author Organization [facility] Address [address] [place] [address] Phone Care Team Providers Care Sports Official Name Role Phone No Information Unavailable Unavailable Medications Medication Instructions Dosage Effective Dates (start - stop) Status Comments No Drug Therapy Prescribed Advance Directives Directive Yes / No Effective Date File Name No Information Encounters Encounter Description Practice Location Reason(s) For Visit Diagnoses Date Provider Providers Copied on Encounter [facility], [address] [place] [address], [facility], [place] tel:[phone] No Information No Information Family History Family Member Type Diagnosis Age At Onset No Information Payers Payer name Insurance type Covered green party ID Authoriza tion(s) No Information Social History Type Description Quantity Date Captured Comments Sex Female Smoking Status No Information Chief Complaint And Reason For Visit No Information History Of Present Illness Encounter Date Complaint History Of Prese nt Illness No Information Medications Administered Medication Instructions Dosage Effective Dates (start - stop) Status Comments No Drug Therapy Prescribed Instructions Date Instruction Additional Infor mation No Information Assessments Type Assessment Date No Information
--- OUTSIDE RECORDS SUMMARY | 2015-04-23 02:00 | XMS_ITS | Continuity of Care Document ---
Author Organization [facility] Address [address] [place] [id number] Phone Care Team Providers Care Slag Mixer Name Role Phone [facility] Unavailable Unava ilable Allergies, Adverse Reactions, Alerts Substance Reaction Status Criticality RIZATRIPTAN BENZOATE Tongue Swelling Active No I nformation Medications Medication Instructions Dosage Effective Dates (start - stop) Status Comments Miralax 17 gram/dose oral powder take (17G) by oral route up to 3 times every day mixed with 8 oz. water, juice, soda, coffee or tea - Active Chlor-Trimeton 4 mg tablet take 1 tablet by oral route every 4 hours as needed - Active senna 8.6 mg capsule take 2 capsule by oral route every day as needed for constipation 2 capsule - Active Metamucil 3.4 gram/7 gram oral powder 1 scoop twice daily - Active Tylenol 325 mg tablet take 1 tablet by oral route every 4 hours as needed 325 MG - Active Dexilant 60 mg capsule, delayed release take 1 capsule by oral route every day 60 MG - No Longer Active Procedures Procedure Date ASC Facility Charge ASC Facility Charge [facility]gi Endo; Dx W/wo Collec Specm 15 Colonoscopy Flex; Dx (sep Pro) 15 Offic/outpt E&m Estab Mod-hi 2 15 Offic/outpt E&m Estab Offic Cons New/estab Mod Advance Directives Directive Yes / No Effective Date File Name No Information Encounters Encounter Description Practice Location Reason(s) For Visit Diagnoses Date Provider Providers Copied on Encounter [facility], [address] [place] [address], [id number] tel:[phone] [facility] No Information 5 [facility]. [address] [place] [address], [id number], [place]. tel:[phone] Referring Provider: Chai Moeller MD , [address] [place] [address], [id number]. tel:[phone] [facility], [address] [place] [address], [id number] tel:[phone] [facility] DyspepsiaCha nge in bowel habits 5 Sajan Paula . [address] [place] [address], [id number], [place]. tel:[phone] Referring Provider: Ion Chanel MD, [address] [place] [address], [id number]. tel:[phone] Offic/outpt E&m Estab Mod-hi 2 [facility], [address] [place] [address], [id number] tel:[phone] [facility] Altered bowel habits (chief complaint) Change in bowel habitsAbdomi nal pain, epigastricBl ood in stool 5 [facility]. [address] [place] [address], [id number], [place]. tel:[phone] Referring Provider: Ion Chanel MD, [address] [place] [address], [id number]. tel:[phone] Offic[facility]outpt [facility], [address] [place] [address], [id number] tel:[phone] [facility] colorectal complaints (chief complaint) Rectal painChange in bowel habits 4 [facility]. [address] [place] [address], [id number], [place]. tel:[phone] Referring Provider: Sarah Rico MD, [address] [place] [address], [id number]. tel:[phone] Offic Cons New/estab Mod [facility], [address] [facility], [place], [place], [id number] tel:[phone] [facility] Rectal pressure (chief complaint) Rectal bleedingChan ge in bowel habitsDiarrh eaAbdominal pain, generalized 201 4 [employer] [facility]. [address] [place] [address], [place], [place], [id number], . tel:[phone] Referring Provider: Sarah Rico MD, [address] [place], [place], [facility]. tel:[phone] Family History Family Member Type Diagnosis Age At Onset Mother Problem (finding) Crohn's disease Brother Problem (finding) Irritable bowel disease Problem (finding) No family hist ory of Cancer, colon Mother Problem (finding) barretts esophagus Brother Problem (finding) acid reflux Mother Problem (finding) Colon polyps 45 Maternal grandmother Problem (finding) Thyroid disorde r Father Problem (finding) Acid reflux Immunizations Vaccine Date Status Comments Flu (split) (3 yrs or older) administered Note: Invalid documented admin date was NULL/NULL/2013. ; Source: Other Provider Flu (split) (3 yrs or older) administered Note: Invalid documented admin date was NULL/NULL/2012. ; Source: Other Provider Payers Payer name Insurance type Covered green party ID Authoriza tion(s) [facility] [id number] Social History Type Description Quantity Date Captured Comments Sex Female Smoking Status No Information Chief Complaint And Reason For Visit No Information Reason For Referral Reason For Referral No Information Plan Of Treatment Date Type Action Status Goal Tobacco cessation counseling completed Goal Tobacco cessation counseling completed Patient Education [facility] Endoscopy: [place] ore Your Proced completed Patient Education Learning About Colonosc opy completed History Of Present Illness Encounter Date Complaint History Of Prese nt Illness Altered bowel habits The patient is a 30 year old woman who returns for a follow up of altered bowel habits.She is 5 months post- and currently .She was having alternating diarrhea and constipation while she was and now she is having constipation.She is taking Miralax BID, Metamucil BID and Senna BID. She is having a bowel movement daily and has some blood streaks in her stool. She denies any melena. She denies any family history of colon cancer or polyps. She also reports epigastric pain since she had her baby. She is taking Ibuprofen 800mg TID for the last four months for neck pain. The epigastric pain occurs daily and will last for minutes to hours. If is not related to eating. She had her gallbladder removed four years ago. colorectal complaints The patien kris is a 29 year old woman who returns for a follow up of rectal pressure.She is currently 34 weeks she is due October 22 2014.She has a family history of Crohns disease in her mother. She has been taking Metamucil daily which has completely resolved her GI symptoms. She is having a bowel movement daily that is soft and formed. She has not had any blood in her stool since starting Metamucil. Her rectal pressure is improved but persists as she is 34 weeks . Labs 07/24/14BC unremarkable, except for an elevated WBC of 16.7CRP 0.73She was not able to provide a loose stool samples. Rectal pressure The patient is a 29 year old woman who was referred for rectal pressure. She is currently 26 weeks she is due October 22 2014.She has a family history of Crohns disease in her mother.For many years she has had alternating diarrhea and constipation that she believed was related to IBS. Since she has been she is having increased diarrhea. Her bowel habits have improved over the last week and is starting to have less diarrhea and more alternating diarrhea and constipation that is normal for her. She has not had a bowel movement in two days. She also reports lower abdominal discomfort that is improved with a bowel movement.She is having intermittent dark blood clots in her stool and some wipe type rectal bleeding. She denies any rectal pain but does described rectal pressure. She denies having external hemorrhoids. Her OB did a rectal exam 3 days ago and stated there was no external hemorrhoids. She denies any weight loss. She does report having increased nausea and food aversions during this . Functional Status Date Functional Assessmen t No Information Instructions Date Instruction Additional Infor kishore Patient advised to p ump and discard breast milk x 24 hrs post-procedure. Related to Dyspepsia Stop NSAID use Related to Abdom inal pain, epigastric PPI samples for one month, take daily 30 min before breakfast Related to Abdominal pain, epigastric Continue Miralax up to TID Relat ed to Change in bowel habits Continue fiber supplements BID R elated to Change in bowel habits Continue Metamucil daily Related to Change in bowel habits Call [facility] when able t o have colonoscopy after Related to Change in bowel habits Metamucil 28g/day w 8oz of water Related to Change in bowel habits Call a progress report next week Related to Change in bowel habits Assessments Type Assessment Date No Information Patient Care Teams Name Effective Dates (start - stop) Status Members No Information
--- OUTSIDE RECORDS SUMMARY | 2025-05-02 08:04 | XMS_ITS | Patient Health Record ---
Author Organization [facility] y Address [address], [place] [id number] Care Team Providers Care Delineator Name Role Phone ORTHO PROVIDER, [facility] Unavailable Self, Referral Unavailable Unavailable Allergies Allergen (clinical drug ingredient) Drug/Non Drug Allergy documented on EMR Reaction Allergy Type Onset Date Status gabapentin gabapentin dizziness Drug Allergy Activ e rizatriptan [facility] anaphylaxis Drug Allergy Act evelio Reason For Referral No Information Medications Medication SIG (Take, Route, Frequency, Duration) Notes Start Date End Date Status acetaminophen-hydrocodone bitartrate Active Prednisone 10mg Acti ve Effexor xr 150mg Act evelio acetaminophen-hydrocodone bitartrate 325 mg-5 mg 1 tab(s) orally every 6 hours as needed for pain 08/28/2019 Active Baclofen 10 mg orally Activ e Social History Tobacco Use: Social History Observation Description Date Details (start date - stop date) Current Smoker NA - NA Tobacco Use: Question Answer Notes Are you a: current smoker Problems Problem Type SNOMED Code ICD Code Onset Dates Problem Status W/U Status Risk Notes Problem Low back pain (482104737) Low back pain (M54.5) Active confirmed Plan Of Treatment No Information Insurance Providers Payer Name Payer Address Payer Phone Subscriber Number Group Number Insured Name Patient Relationship to Insured Coverage Start Date Coverage End Date BCBS PPO [address] [place], [place] [phone] [id number] Lizzeth Toscano Self - patient is the insured Medical (General) History Medical History History ICD Code History: Anxiety,Asthma,Depression Surgical History Surgery Date(Month/Year) GALL BLADDER 2012 OVARIAN CYST 2001 OVARIAN CYST 2013 OVARIAN CYST 2016 SALIVARY GLAND 2005 WISDOM TEETH 2000
[2025-05-02 08:06] VITALS: BP 112/91; PULSE 108; RESP 16; TEMP 36.4; O2SAT 98; BMI 23.3
--- NOTE | 2025-05-02 08:13 | ED_ITS ---
HPI - Nausea/Vomiting/Diarrhea 2 General: Chief complaint: Nausea/Vomiting/Diarrhea Stated complaint: NVD Time Seen by Provider: 05/02/25 08:04 History of Present Illness: 40-year-old female presents emergency ro om complaining of significant bloating discomfort she has been able to eat or drink anything she feels like she is going to throw up slowly. She is able to swallow and hold down for bed and then vomits. She had problems with vocal cord spasm she supposed to get a Botox injection to her vocal cord with ENT soon. She has a history of seizures not known to keep her seizure medication down she is concerned about having a seizure. Has been very nauseous all this well she denies any fever no dysuria urgency or frequency no medic easier melena. Associated nausea: Yes Associated symtoms: Reports bloating and nausea; Denies chest pain or dysuria Related Data Home Medications ?Medication ?Instructions ?Recorded ?Confirmed lidocaine HCl 4 % topical patch 1 patch topical DAILY Neck/back 01/14/25 04/22/25 pain diphenhydramine HCl 25 mg capsule 25 mg PO TID PRN 06/2604/22/25 ibuprofen 200 mg tablet 800 mg PO Q6H PRN 04/09/25 0 04/22/25 Previous Rx's ?Medication ?Instructions ?Recorded ondansetron 4 mg disintegrating 4 mg PO Q6H PRN nausea and 04/02/25 tablet vomiting #30 tabs levetiracetam 500 mg 1,500 mg (3 x 500 mg) PO .QP M #90 04/09/25 tablet,extended release 24 hr tabs venlafaxine 75 mg capsule,extended 75 mg PO QAM 30 day s #30 caps 04/09/25 release 24 hr lamotrigine 150 mg tablet 150 mg PO BID 90 days #180 t abs 04/21/25 metoclopramide HCl 10 mg tablet 10 mg PO QID 7 days #2 8 tabs 05/02/25 (Reglan) pantoprazole 40 mg tablet,delayed 40 mg PO DAILY 4 wee ks #40 tabs 05/02/25 release (Protonix) Allergies Allergy/AdvReac Type Severity Reaction Status Date / Time gabapentin Allergy Intermediate ADR-Dizzine Verified 05/02/25 08:09 ss rizatriptan (From [facility]) Allergy Mild Unknown Verified 05/02/25 08:09 Review of Systems 2 Const: Denies: fever(s) or chills Card: Denies: chest pain Resp: Denies: dyspnea GI: Reports: nausea, vomiting, bloating and GI cramping; Denies: abdominal pain : Denies: dysuria, urinary frequency or urinary urgency Musc: Denies: neck pain or back pain Skin/Breast: Denies: rash PFSH ED 2 PFSH: Medical History Snoring Partial symptomatic epilepsy with complex partial seizures, intractable, with status epilepticus Psychiatric care Iron deficiency anemia Palpitation Lumbar disc disease Herpes simplex type 2 Mild intermittent asthma in childhood IBS (irritable bowel syndrome) diagnosed by GI. hx of colonoscopy. Raynauds disease Calcium kidney stones Adenomyosis Endometriosis Ovarian cyst ADHD Major depression Generalized anxiety disorder Surgical History Hx of wisdom tooth extraction Hx of cholecystectomy History of salivary gland disease had a stone and then had gland removal History of removal of ovarian cyst X3 Family History Other Anesthesia complication Autoimmune disease CAD (coronary artery disease) Cancer Diabetes mellitus type 1 Heart disease Hypertension Prostate cancer Skin cancer Stroke Ulcerative colitis Social History Smoking and tobacco/nicotine status: current every day tobacco/nicotine user (vapes) Alcohol intake: current Alcohol intake frequency: holidays/special occasions only Substance/Drug Use: current Other substance/drug use details: pen-helps with anxiety, once/week Female Reproductive History: Date of last menstrual period: 04/30/25 Physical Exam 2 Const: GENERAL APPEARANCE: cooperative ORIENTATION/CONSCIOUSNESS: Yes awake, Yes oriented to person, Yes oriented to place and Yes oriented to time HENMT: COMMON NORMALS: normocephalic, atraumatic and hearing grossly normal bilaterally HEAD & SCALP: normocephalic and atraumatic Resp: COMMON NORMALS: normal respiratory effort, No retractions, No use of accessory muscles and clear to auscultation bilaterally AUSCULTATION: clear to auscultation bilaterally Cardio: COMMON NORMALS: regular rate, regular rhythm and No murmurs present (Cardio) RATE: regular rate RHYTHM: regular rhythm GI: COMMON NORMALS: Soft to palpation and No hepatosplenomegaly present A USCULTATION: Yes normoactive bowel sounds PALPATION: Yes Soft to palpation, No Tenderness to palpation present (GI), No Guarding due to palpation present (GI) and Yes No hepatosplenomegaly present OTHER: Abdomen distended and tympanic bowel sounds are positive Extremity: COMMON NORMALS: normal to inspection, capillary refill normal, no clubbing, cyanosis or edema, no calf tenderness and no pedal edema Neuro: SENSORIUM/ORIENTATION: Yes oriented to person, Yes oriented to place and Yes oriented to time Skin: COMMON NORMALS: no rashes or lesions noted GENERAL SKIN EXAM: no rashes or lesions noted Course 2 Vital Signs: Vital signs: Vital Signs Temperature 97.6 F 05/02/25 08:06 Pulse Rate 81 05/02/25 11:17 Respiratory Rate 16 05/02/25 08:06 Blood Pressure 115/86 05/02/25 11:17 Pulse Oximetry 93 05/02/25 11:17 Oxygen Delivery Me thod Room Air 05/02/25 10:11 MDM - Nausea/Vomiting/Diarrhea Medical Decision Making CT showed a large amount of air in the stomach. NG placed decompressed patient feels much better NG removed will discharge home avoid carbonated beverages. Started on Reglan set up for an outpatient gastric emptying study and follow-up with general surgery Medical Records I reviewed the patient's medical records. Lab Data I reviewed the patient's lab results. 05/02/25 08:19 05/02/25 08:19 Radiology Impressions Abdomen/Pelvis CT 05/02/25 09:05 IMPRESSION: 1. Marked distention of the stomach with air-fluid level. Recommend correlation for gastroparesis. 2. Small esophageal hiatal hernia with thickening of the distal esophagus and submucosal enhancement compatible with esophagitis. 3. Fatty liver. 4. Cholecystectomy clips. 5. No hydronephrosis in either kidney. 6. Trace free fluid in the cul-de-sac likely physiologic. 7. Fat-containing umbilical hernia KUB X-Ray 05/02/25 10:28 IMPRESSION: Nasogastric tube in distal stomach. Laboratory Results WBC 8.94 10^3/uL (3.29-11.43) 05/02/25 08:19 RBC 5.45 10^6/uL (3.85-5.65) 05/02/25 08:19 Hgb 14.90 g/dL (11.27-16.99) 05/02/25 08:19 Hct 44.5 % (36-47) 05/02/25 08:19 MCV 81.7 fl (85-98) L 05/02/25 08:19 MCH 27.3 pg (27-33) 05/02/25 08:19 MCHC 33.5 g/dL (30-55) 05/02/25 08:19 RDW 11.9 % (12.1-15.1) L 05/02/25 08:19 Plt Count 361 10^3/cmm (157-399) 05/02/25 08:19 MPV 9.5 fL (7.4-10.4) 05/02/25 08:19 Neut % (Auto) 78.7 % 05/02/25 08:19 Lymph % (Auto) 13.3 % 05/02/25 08:19 [place] % (Auto) 7.2 % 05/02/25 08:19 Eos % (Auto) 0.0 % 05/02/25 08:19 Baso % (Auto) 0.6 % 05/02/25 08:19 Neut # (Auto) 7.04 10^3/uL (1.8-7.7) 05/02/25 08:19 Lymph # (Auto) 1.2 10^3/uL (0.8-4.8) 05/02/25 08:19 [place] # (Auto) 0.6 10^3/uL (0.2-0.9) 05/02/25 08:19 Eos # (Auto) 0.0 10^3/uL (0.0-0.8) 05/02/25 08:19 Baso # (Auto) 0.1 10^3/uL (0.0-0.1) 05/02/25 08:19 Nucleated RBC % (auto) 0 % 05/02/25 08:19 Nucleated RBCs # 0.0 /100WBC 05/02/25 08:19 Sodium 138 mmol/L (136-145) 05/02/25 08:19 Potassium 3.4 mmol/L (3.5-5.1) L 05/02/25 08:19 Chloride 93 mmol/L (98-107) L 05/02/25 08:19 Carbon Dioxide 18 mmol/L (22-29) L 05/02/25 08:19 Anion Gap 30.4 (5-19) H 05/02/25 08:19 BUN 11 mg/dL (6-20) 05/02/25 08:19 Creatinine 0.8 mg/dL (0.5-0.9) 05/02/25 08:19 GFR Calculation 79.0 mL/min (90-130) L 05/02/25 08:19 Glucose 89 mg/dL (65-115) 05/02/25 08:19 Calculated Osmolality 285 mOsm/kg (285-295) 05/02/25 08:19 Calcium 10.1 mg/dL (8.5-10.5) 05/02/25 08:19 Total Bilirubin 0.4 mg/dL (0.15-1.2) 05/02/25 08:19 AST 28 U/L (0-32) 05/02/25 08:19 ALT 29 U/L (0-33) 05/02/25 08:19 Alkaline Phosphatase 127 U/L (35-105) H 05/02/25 08:19 Total Protein 8.5 g/dL (6.6-8.7) 05/02/25 08:19 Albumin 5.0 g/dL (3.5-5.2) 05/02/25 08:19 Globulin 3.5 g/dL (1.3-4.6) 05/02/25 08:19 Lipase 69 U/L (13-60) H 05/02/25 08:19 HCG, Qual Negative (Negative) 05/02/25 08:19 Urine Color Yellow (Yellow) 05/02/25 08:50 Urine Appearance Cloudy (CLEAR) A 05/02/25 08:50 Urine pH 5.5 (5-7) 05/02/25 08:50 Ur Specific [place] 1.023 (1.005-1.030) 05/02/25 08:50 Urine Protein 3+ (Negative) A 05/02/25 08:50 Urine Glucose (UA) Negative (Normal) 05/02/25 08:50 Urine Ketones 4+ (Negative) 05/02/25 08:50 Urine Blood 2+ (Negative) A 05/02/25 08:50 Urine Nitrate Negative (Negative) 05/02/25 08:50 Urine Bilirubin Negative (Negative) 05/02/25 08:50 Urine Urobilinogen 1.0 mg/dL (Negative) 05/02/25 08:50 Ur Leukocyte Esterase Negative (Negative) 05/02/25 08:50 Urine RBC 6-10 /hpf (0-2) 05/02/25 08:50 Urine WBC 0-5 /hpf (0-5) 05/02/25 08:50 Ur Squamous Epith Cells 0-5 /hpf (0-5) 05/02/25 08:50 Amorphous Sediment Not Reportable 05/02/25 08:50 Urine Bacteria 1+ /hpf (NONE) H 05/02/25 08:50 Hyaline Casts 9.91 /lpf 05/02/25 08:50 All radiology interpretation(s) finalized by discharge Discharge Plan Discharge Patient Disposition: Home Clinical Impression: Gastroparesis, GERD with esophagitis Condition: Stable Prescriptions: New pantoprazole [Protonix] 40 mg tablet,delayed release (DR/EC) 40 mg PO DAILY 28 Days Qty: 40 0RF Rx Instructions: 1 tablet twice a day for 10 days then 1 tablet daily metoclopramide HCl [Reglan] 10 mg tablet 10 mg PO QID 7 Days Qty: 28 0RF No Action lidocaine HCl 4 % adhesive patch,medicated 1 patch topical DAILY Patient Comments: 1 patch daily prn diphenhydramine HCl 25 mg capsule 25 mg PO TID PRN ibuprofen 200 mg tablet 800 mg PO Q6H PRN levetiracetam 500 mg tablet extended release 24 hr 1,500 mg PO .QPM Qty: 90 6RF venlafaxine 75 mg capsule,extended release 24hr 75 mg PO QAM 30 Days Qty: 30 5RF ondansetron 4 mg tablet,disintegrating 4 mg PO Q6H PRN (Reason: nausea and vomiting) Qty: 30 1RF lamotrigine 150 mg tablet 150 mg PO BID 90 Days Qty: 180 5RF Discharge Orders: Discharge ED (Routine); Ordered 05/02/25 Ordered By: Damien Wheeler Referrals: Roberto Donaldson, TRADING FLOOR OPERATOR [Primary Care Provider, Family Practice] Discharge Diet: As Directed Discharge Activity: Resume usual activity Patient Instructions: Opioid Safety, Pain Management, Patient Portal & Shauna Instructions Activity Restrictions/Additional Instructions: Thank you for choosing [facility] for your healthcare needs today. It is very important that you follow up as instructed or that you return to the Emergency Department should you have concerns or if your condition changes or worsens in any way. You were seen in the emergency room with abdominal discomfort CT showed signs of irritation of the lower portion esophagus and a large amount of air retained in your stomach. This was relieved by placement of a gastric tube and confirmed emptying of the air from your stomach with a repeat x-ray. Recommend that you start on Protonix twice a day for 10 days then once daily metoclopramide 1 tablet 4 times a day for 7 days. Will set you up for an outpatient gastric emptying study and follow-up with Dr. 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
[2025-05-02 08:26] LABS: Hematocrit 44.5 % (36-47); Hemoglobin 14.90 g/dL (11.27-16.99); Mean Corpuscular HGB Conc 33.5 g/dL (30-55); Mean Corpuscular Hemoglobin 27.3 pg (27-33); Mean Corpuscular Volume 81.7 fl (85-98); Nucleated Red Blood Cells % 0 %; Platelet Count 361 10^3/cmm (157-399); Red Blood Count 5.45 10^6/uL (3.85-5.65); White Blood Count 8.94 10^3/uL (3.29-11.43)
[2025-05-02] MEDS: levETIRAcetam 1,500 MG/100 ML PREMIX 400 MG IV (08:32)
[2025-05-02] MEDS: ondansetron 2 mg/ML SDV 2 mL 4 MG IVP (08:32)
[2025-05-02 08:33] VITALS: BP 112/91; PULSE 91; O2SAT 94
[2025-05-02 08:42] LABS: Alanine Aminotransferase 29 U/L (0-33); Albumin Level 5.0 g/dL (3.5-5.2); Alkaline Phosphatase 127 U/L (35-105); Anion Gap 30.4 (5-19); Aspartate Amino Transferase 28 U/L (0-32); Blood Urea Nitrogen 11 mg/dL (6-20); Calcium 10.1 mg/dL (8.5-10.5); Carbon Dioxide 18 mmol/L (22-29); Chloride 93 mmol/L (98-107); Creatinine Clr Calc Pharmacy 90.4151; Globulin 3.5 g/dL (1.3-4.6); Glucose 89 mg/dL (65-115); Lipase 69 U/L (13-60); Osmolality Calculated 285 mOsm/kg (285-295); Potassium 3.4 mmol/L (3.5-5.1); Sodium 138 mmol/L (136-145); Total Protein 8.5 g/dL (6.6-8.7)
[2025-05-02 08:49] LABS: HCG, Serum Qual Negative (Negative)
[2025-05-02 09:04] VITALS: PULSE 71; O2SAT 97
--- NOTE | 2025-05-02 09:05 | CT_ITS ---
WS: [id number] CT ABDOMEN PELVIS TECHNIQUE: Contrast-enhanced CT of the abdomen and pelvis with coronal and sagittal reformatted images. CLINICAL INFORMATION: abd pain COMPARISON: None. DLP: 445.[address] scans at [facility] use at least one of these dose optimization techniques: automated exposure control; mA and/or kV adjustment per patient size (includes targeted exams where dose is matched to clinical indication); or iterative reconstruction. FINDINGS: Fatty liver. Cholecystectomy clips. Small esophageal hernia with enhancement in the distal esophagus compatible with esophagitis. Marked distention of the stomach with air-fluid level. Splenic granulomas. Normal portal vein and splenic vein. Adrenal glands are normal. Normal pancreatic parenchymal enhancement. Normal caliber abdominal aorta. Celiac and SMA are patent. Adrenal glands are normal. Normal renal parenchymal enhancement. No hydronephrosis. Normal appendix. Fat-containing umbilical hernia. Trace free fluid in the cul-de-sac. Retroflexed uterus. Multi follicular ovaries bilaterally. No evidence of high-grade small or large bowel obstruction. CT/CT abdomen pelvis w con* [id number] IMPRESSION: 1. Marked distention of the stomach with air-fluid level. Recommend correlatio n for gastroparesis. 2. Small esophageal hiatal hernia with thickening of the distal esophagus and submucosal enhancement compatible with esophagitis. 3. Fatty liver. 4. Cholecystectomy clips. 5. No hydronephrosis in either kidney. 6. Trace free fluid in the cul-de-sac likely physiologic. 7. Fat-containing umbilical hernia
[2025-05-02 09:25] LABS: Glucose Urine UA Negative (Normal); Nitrate Urine Negative (Negative); Specific Gravity, Urine 1.023 (1.005-1.030)
[2025-05-02] MEDS: iohexol 350 mg/mL 500 mL Btl (per mL) IV (09:26)
[2025-05-02 09:33] LABS: Add Urine Microscopic? YES
[2025-05-02 09:55] LABS: UA Slide Review UA Slide Review Perf
[2025-05-02 10:11] VITALS: PULSE 77; O2SAT 99
--- NOTE | 2025-05-02 10:28 | XRR_ITS ---
PROCEDURE INFORMATION: Exam: XR Abdomen Exam date and time: 05/02/2025 10:35 AM Age: 40 years old Clinical indication: Device placement; Gi device; Nasogastric tube; Additional info: Gastroparesis ng placement TECHNIQUE: Imaging protocol: Radiologic exam of the abdomen. Views: Frontal supine view of the abdomen. 1 View. COMPARISON: CT abdomen pelvis w con* [id number] 05/02/2025 9:17 AM FINDINGS: Tubes, catheters and devices: Nasogastric tube extends to the distal stomach. Heart/Mediastinum: Cardiomediastinal contours within normal limits. Lungs: Calcified pulmonary granulomata are present. No significant active pulmonary pathology. Pleural spaces: No pleural effusion. Gastrointestinal tract: Normal. No bowel dilation. Intraperitoneal space: Right upper quadrant surgical clips noted. Organs: Residual contrast in the urinary collecting systems from prior CT. Bones/joints: Unremarkable. Other findings: No active disease. XR/XR KUB portable [id number] IMPRESSION: Nasogastric tube in distal stomach.
[2025-05-02 11:17] VITALS: BP 115/86; PULSE 81; O2SAT 93
--- NOTE | 2025-05-05 13:04 | DCPLANNER ---
faxed outpatient nm order to scheduling and messaged gen surg for er f/u
== END 2025-05-02 11:39 | disposition home or self-care (01) ==
PROVIDERS: Emergency Provider Family Medicine; PCP Clinical Nurse Specialist Adult Health
DX: K31.84 Gastroparesis (principal); K21.00 Gastro-esophageal reflux disease with esophagitis, without bleeding; F17.290 Nicotine dependence, other tobacco product, uncomplicated
CPT/HCPCS: 36415; 74018; 74177; 80053; 81001; 83690; 84703; 85025; 87086; 96361; 96365; 96366; 96375; 99285; J1953; J2405; J7030

== ENCOUNTER 2025-06-11 07:53 | Outpatient (CLI) | payer MEDICAID, SELFPAY ==
--- NOTE | 2025-06-11 08:02 | NM_ITS ---
WS: [id number] NUCLEAR MEDICINE GASTRIC STUDY CLINICAL INFORMATION: NAUSEA TECHNIQUE: Following oral ingestion of cooked egg mixed with 1.01 mCi technetium 99m sulfur colloid, anterior images of the stomach were obtained over the course of 90 minutes. Activity curve was performed over the course of 90 minutes with linear regression analysis. COMPARISON: None. FINDINGS: Oral ingestion cooked egg mixture T1 half emptying 93.96 minutes at the higher into the range are within normal limits (normal emptying 45 to 110 minutes) 30% emptying at 63 minutes 54% emptying at 102 minutes NM/NM gastric emptying st [id number] IMPRESSION: T1 half emptying 93.96 minutes at the higher end of the range but within lars l limits *Normal median T1 half 90 minutes for solid egg meal (45-110 minutes). Delayed gastric retention is defined as 90% retained at 1 hour, 60% at 2 hour s, 30% at 3 hours, and 10% at 4 hours (normal percent gastric retention is 37-9 0% at 1 hour, 30-60% at 2 hours, and 0-10% at 4 hours).
== END 2025-06-11 07:54 | disposition home or self-care (01) ==
LOC: RAD 07:53
PROVIDERS: PCP Clinical Nurse Specialist Adult Health; Visit Provider Family Medicine
DX: R19.7 Diarrhea, unspecified (principal); R11.0 Nausea
CPT/HCPCS: 78264; A9541